=== PATIENT | female | born 1980 | race Caucasian/White ===

== ENCOUNTER 2017-01-05 16:54 | Emergency (ER) | payer MEDICARE, OTHER ==
[2017-01-05 17:02] VITALS: RESP 18; TEMP 99
[2017-01-05] MEDS ORDERED: SODIUM CHLORIDE 0.9% 1,000 ML IV STA (17:25)
[2017-01-05] MEDS ORDERED: LORazepam 2 MG/ML SYRINGE IV STA (17:40)
--- NOTE | 2017-01-05 17:40 | ED ---
General Adult HPI - General Chief complaint: Syncope Stated complaint: syncope Source: patient, EMS, RN notes reviewed, old records reviewed Mode of arrival: EMS Limitations: no limitations - History of Present Illness Initial comments: Chief complaint history of present illness 36-year-old female here with a complaint of having a syncopal episode at home. Patient reports she's had 2 days of discomfort to the left flank area. She does have a history of frequent only passing kidney stones does not have urination since this morning. Patient also reports that she had some anxiety associated with problems at home she developed some shortness of breath chest pain and dark vision and then reportedly passed out. Patient does have a history of bipolar disorder and anxiety and depression. - Related Data Home Medications Medication Instructions Recorded Confirmed Diazepam [Diazepam] 10 mg PO BID PRN 07/01/16 01/05/17 Carisoprodol [Soma] 350 mg PO DIRECTED 01/05/17 01/05/17 HYDROcodone/APAP 7.5-325MG [[place] 1 tab PO QID PRN 01/05/17 01/05/17 7.5-325] Previous Rx's Medication Instructions Recorded Ondansetron Odt [Zofran ODT] 4 mg PO Q8HR PRN #5 tab 01/05/17 Tamsulosin [Flomax] 0.4 mg PO DAILY #14 cap 01/05/17 Allergies Allergy/AdvReac Type Severity Reaction Status Date / Time codeine phosphate Allergy Itching Verified 01/05/17 17:34 [From Tylenol-Codeine #3] egg AdvReac DIGESTIVE Verified 01/05/17 17:34 ISSUES ibuprofen [From Motrin] AdvReac Stomach Verified 01/05/17 17:34 bleed Review of Systems ROS Statement: Those systems with pertinent positive or pertinent negative responses have been documented in the HPI. Review of systems. Patient's denying headache or visual acuity change this time chest pain is low at up. She still anxious and upset. Left flank pain. Nausea no vomiting. Decreased urination slightly. No trouble with bowel movements. No injuries lately. All systems are reviewed. Past medical problems significant for anxiety, bipolar disorder depression. Surgeries hernia , tubal ligation and lithotripsy. Family history includes multiple cancers including lung, cervical, breast and lymphoma. The patient has ALLERGIES to codeine and eggs and ibuprofen because of stomach ulcers. Patient does smoke strongly encouraged to stop. Denies alcohol use. ROS Other: All systems not noted in ROS Statement are negative. Past Medical History Additional Past Medical History / Comment(s): kidney stones, facet syndrome, back pain, sciatica, bipolar History of Any Multi-Drug Resistant Organisms: None Reported Past Surgical History: Hernia Repair, Tubal Ligation Additional Past Surgical History / Comment(s): lithotripsy, hx of kidney stones Past Psychological History: Anxiety, Bipolar, Depression Smoking Status: Current every day smoker Past Alcohol Use History: Occasional Past Drug Use History: Marijuana, Prescription Drug Abuse General Exam - General Exam Comments Initial Comments: General: The patient is awake and alert, complains of feeling anxious. Her syncopal episode approximately 30 minutes ago. States she's under great deal of stress. Vital signs show temperature 99.0 pulse 102 respiratory rate 18 pulse ox on percent room air blood pressure 120/87 Eye: Pupils are equal, round and reactive to light, extra-ocular movements are intact ; there is normal conjunctiva bilaterally. No signs of icterus. Ears, nose, mouth and throat: There are moist mucous membranes and no oral lesions. Neck: The neck is supple, there is no tenderness . Cardiovascular: Tachycardic heart rate, 102. No murmur, rub or gallop is appreciated. No chest pain at this time Respiratory: Lungs are clear to auscultation, respirations are non-labored, breath sounds are equal. No wheezes, stridor, rales, or rhonchi. Gastrointestinal: Feels like a nervous stomach not nauseated but nervous Back: Left flank pain. Musculoskeletal: Normal ROM, no tenderness, There is no pedal edema. There is no calf tenderness or swelling. Sensation intact. Pulses equal bilaterally 2+. Neurological: No neuro deficits cranial nerves II through XII are intact. Skin: Skin is warm and dry and no rashes or lesions are noted. Psychiatric: Cooperative, anxious, crying. History of bipolar disorder and anxiety reaction. Limitations: no limitations Course Vital Signs 01/05/17 01/05/17 01/05/17 16:56 18:12 20:28 Temperature 99.0 F Pulse Rate 102 H 81 97 Respiratory 18 18 18 Rate Blood Pressure 120/87 109/69 137/98 O2 Sat by Pulse 100 98 97 Oximetry 01/05/17 22:11 Temperature Pulse Rate 99 Respiratory 18 Rate Blood Pressure 128/79 O2 Sat by Pulse 98 Oximetry EKG Findings - EKG Comments: EKG Findings:: EKG was done and reviewed at 1757 showing normal sinus rhythm no acute service no ectopy no ischemic changes. Rate 89 UT interval is 120 QRS 84 QT [address] Angelo. This EKG was compared to one done on 07/01/2016 and they're similar. Medical Decision Making - Medical Decision Making Labs show white count 9.8 hemoglobin 14 hematocrit of 40. Potassium 4.2 BUN 11 creatinine 0.6 with a GFR greater than 60. Glucose 90. Patient requesting pain medication for developing left kidney pain. She states she uses Toradol and occasionally a stronger pain medication. She was given Toradol 30 IV and 0.5 of Dilaudid. She reports she has ALLERGIES ibuprofen because it irritates her stomach. But Toradol does not through the IV. Chest x-ray is done and reviewed by radiologist his impression is normal chest no change. As read by Dr. Garcia X-ray of the abdomen was done and reviewed by radiologist his impression is nonacute abdomen. No change. As read by Dr. Garcia Drug triage was positive for opiates, amphetamines, benzodiazepines and marijuana. The patient is refusing a CAT scan states she can go home and comfortably or pass a stone on her own she's done in the past. Urine showed 3 reds 3 whites but no signs of infection. The patient will be placed on Flomax ibuprofen and Zofran. Told to follow-up with family physician. Change positions slowly. - Lab Data Result diagrams: 01/05/17 18:10 01/05/17 18:10 Lab Results 01/05/17 01/05/17 01/05/17 Range/Units 18:10 18:10 18:10 WBC 9.8 (3.8-10.6) k/uL RBC 4.39 (3.80-5.40) m/uL Hgb 14.0 (11.4-16.0) gm/dL Hct 40.4 (34.0-46.0) % MCV 92.1 (80.0-100.0) fL MCH 31.8 (25.0-35.0) pg MCHC 34.5 (31.0-37.0) g/dL RDW 12.6 (11.5-15.5) % Plt Count 285 (150-450) k/uL Neutrophils % 70 % Lymphocytes % 23 % Monocytes % 3 % Eosinophils % 2 % Basophils % 1 % Neutrophils # 6.9 (1.3-7.7) k/uL Lymphocytes # 2.2 (1.0-4.8) k/uL Monocytes # 0.3 (0-1.0) k/uL Eosinophils # 0.2 (0-0.7) k/uL Basophils # 0.1 (0-0.2) k/uL Sodium 137 (137-145) mmol/L Potassium 4.2 (3.5-5.1) mmol/L Chloride 104 (98-107) mmol/L Carbon Dioxide 26 (22-30) mmol/L Anion Gap 7 mmol/L BUN 11 (7-17) mg/dL Creatinine 0.63 (0.52-1.04) mg/dL Est GFR (MDRD) Af Amer >60 (>60 ml/min/1.73 sqM) Est GFR (MDRD) Non-Af >60 (>60 ml/min/1.73 sqM) Glucose 90 (74-99) mg/dL Calcium 9.1 (8.4-10.2) mg/dL Total Bilirubin 0.3 (0.2-1.3) mg/dL AST 12 L (14-36) U/L ALT 25 (9-52) U/L Alkaline Phosphatase 55 (38-126) U/L Total Creatine Kinase 66 (30-135) U/L CK-MB (CK-2) 0.2 (0.0-2.4) ng/mL CK-MB (CK-2) Rel Index 0.3 Troponin I <0.012 (0.000-0.034) ng/mL Total Protein 5.7 L (6.3-8.2) g/dL Albumin 3.6 (3.5-5.0) g/dL Urine Color Urine Appearance (Clear) Urine pH (5.0-8.0) Ur Specific [place] (1.001-1.035) Urine Protein (Negative) Urine Glucose (UA) (Negative) Urine Ketones (Negative) Urine Blood (Negative) Urine Nitrate (Negative) Urine Bilirubin (Negative) Urine Urobilinogen (<2.0) mg/dL Ur Leukocyte Esterase (Negative) Urine RBC (0-5) /hpf Ur Squamous Epith Cells (0-4) /hpf Urine Mucus (None) /hpf Urine Opiates Screen (NotDetected) Ur Oxycodone Screen (NotDetected) Urine Methadone Screen (NotDetected) Ur Propoxyphene Screen (NotDetected) Ur Barbiturates Screen (NotDetected) U Tricyclic Antidepress (NotDetected) Ur Phencyclidine Scrn (NotDetected) Ur Amphetamines Screen (NotDetected) U Methamphetamines Scrn (NotDetected) U Benzodiazepines Scrn (NotDetected) Urine Cocaine Screen (NotDetected) U Marijuana (THC) Screen (NotDetected) 01/05/17 Range/Units 20:23 WBC (3.8-10.6) k/uL RBC (3.80-5.40) m/uL Hgb (11.4-16.0) gm/dL Hct (34.0-46.0) % MCV (80.0-100.0) fL MCH (25.0-35.0) pg MCHC (31.0-37.0) g/dL RDW (11.5-15.5) % Plt Count (150-450) k/uL Neutrophils % % Lymphocytes % % Monocytes % % Eosinophils % % Basophils % % Neutrophils # (1.3-7.7) k/uL Lymphocytes # (1.0-4.8) k/uL Monocytes # (0-1.0) k/uL Eosinophils # (0-0.7) k/uL Basophils # (0-0.2) k/uL Sodium (137-145) mmol/L Potassium (3.5-5.1) mmol/L Chloride (98-107) mmol/L Carbon Dioxide (22-30) mmol/L Anion Gap mmol/L BUN (7-17) mg/dL Creatinine (0.52-1.04) mg/dL Est GFR (MDRD) Af Amer (>60 ml/min/1.73 sqM) Est GFR (MDRD) Non-Af (>60 ml/min/1.73 sqM) Glucose (74-99) mg/dL Calcium (8.4-10.2) mg/dL Total Bilirubin (0.2-1.3) mg/dL AST (14-36) U/L ALT (9-52) U/L Alkaline Phosphatase (38-126) U/L Total Creatine Kinase (30-135) U/L CK-MB (CK-2) (0.0-2.4) ng/mL CK-MB (CK-2) Rel Index Troponin I (0.000-0.034) ng/mL Total Protein (6.3-8.2) g/dL Albumin (3.5-5.0) g/dL Urine Color Yellow Urine Appearance Clear (Clear) Urine pH 6.0 (5.0-8.0) Ur Specific [place] 1.019 (1.001-1.035) Urine Protein Negative (Negative) Urine Glucose (UA) Negative (Negative) Urine Ketones Negative (Negative) Urine Blood Negative (Negative) Urine Nitrate Negative (Negative) Urine Bilirubin Negative (Negative) Urine Urobilinogen <2.0 (<2.0) mg/dL Ur Leukocyte Esterase Moderate H (Negative) Urine RBC 3 (0-5) /hpf Ur Squamous Epith Cells 3 (0-4) /hpf Urine Mucus Rare H (None) /hpf Urine Opiates Screen Detected H (NotDetected) Ur Oxycodone Screen Not Detected (NotDetected) Urine Methadone Screen Not Detected (NotDetected) Ur Propoxyphene Screen Not Detected (NotDetected) Ur Barbiturates Screen Not Detected (NotDetected) U Tricyclic Antidepress Not Detected (NotDetected) Ur Phencyclidine Scrn Not Detected (NotDetected) Ur Amphetamines Screen Detected H (NotDetected) U Methamphetamines Scrn Not Detected (NotDetected) U Benzodiazepines Scrn Detected H (NotDetected) Urine Cocaine Screen Not Detected (NotDetected) U Marijuana (THC) Screen Detected H (NotDetected) Disposition Clinical Impression: Syncope, Renal colic on left side Disposition: HOME SELF-CARE Condition: Fair Instructions: Syncope (ED), Renal Colic (ED) Additional Instructions: Increase her fluids. Change positions slowly. No driving for 6 months which is a state law. Follow-up with your family physician to get driving privileges back again. Prescriptions: Ondansetron Odt [Zofran ODT] 4 mg PO Q8HR PRN #5 tab PRN Reason: Nausea Tamsulosin [Flomax] 0.4 mg PO DAILY #14 cap
[2017-01-05 18:27] LABS: Basophils # (A) 0.1 k/uL (0-0.2); Basophils % (A) 1 %; CH 31.8; CHCM 34.7; Eosinophils # (A) 0.2 k/uL (0-0.7); Eosinophils % (A) 2 %; HCT 40.4 % (34.0-46.0); HDW 2.37; Luc % (Auto) 1; Lymphocytes # (A) 2.2 k/uL (1.0-4.8); Lymphocytes % (A) 23 %; MCH 31.8 pg (25.0-35.0); MCHC 34.5 g/dL (31.0-37.0); MCV 92.1 fL (80.0-100.0); Mean Platelet Volume 7.4; Monocytes # (A) 0.3 k/uL (0-1.0); Monocytes % (A) 3 %; Neutrophils # (A) 6.9 k/uL (1.3-7.7); Neutrophils % (A) 70 %; RBC 4.39 m/uL (3.80-5.40); RDW 12.6 % (11.5-15.5); WBC 9.8 k/uL (3.8-10.6); WBC (Perox) 9.64
[2017-01-05 18:29] LABS: ALT 25 U/L (9-52); AST 12 U/L (14-36); Alkaline Phosphatase 55 U/L (38-126); Anion Gap 7 mmol/L; Blood Urea Nitrogen 11 mg/dL (7-17); Calcium 9.1 mg/dL (8.4-10.2); Carbon Dioxide 26 mmol/L (22-30); Chloride 104 mmol/L (98-107); Glucose 90 mg/dL (74-99); Non-African American GFR(MDRD) >60 (>60 ml/min/1.73 sqM); Potassium 4.2 mmol/L (3.5-5.1); Sodium 137 mmol/L (137-145); Total Bilirubin 0.3 mg/dL (0.2-1.3); Total Protein 5.7 g/dL (6.3-8.2)
[2017-01-05 18:40] LABS: Creatine Kinase 66 U/L (30-135)
[2017-01-05] MEDS ORDERED: KETOROLAC 30 MG/ML 1 ML VIAL IVP STA (18:48)
[2017-01-05] MEDS ORDERED: HYDROmorphone 1 MG/ML 1 ML SYRINGE IVP STA (18:48)
--- NOTE | 2017-01-05 18:52 | XR ---
EXAMINATION TYPE: XR chest 2V DATE OF EXAM: 01/05/2017 6:33 PM COMPARISON: 07/02/2016 HISTORY: Dizziness TECHNIQUE: Frontal and lateral views of the chest are obtained. FINDINGS: Heart and mediastinum are normal. Lungs are clear. Diaphragm is normal. There are chest le ads. Bony thorax is intact. IMPRESSION: Normal chest. No change.
--- NOTE | 2017-01-05 18:53 | XR ---
EXAMINATION TYPE: XR abdomen 2V DATE OF EXAM: 01/05/2017 6:33 PM COMPARISON: 04/10/2016 HISTORY: Dizziness and left flank pain TECHNIQUE: 3 views FINDINGS: Bowel gas pattern is normal. There is no sign of intestinal obstruction or pneumoperitoneum . There are clips from tubal ligation. Fecal pattern is normal. Lung bases are clear. There are no pa thologic calcifications over the kidneys. IMPRESSION: Nonacute abdomen. No change.
[2017-01-05 18:54] LABS: Creatine Kinase MB 0.2 ng/mL (0.0-2.4); Troponin I <0.012 ng/mL (0.000-0.034)
[2017-01-05 20:40] LABS: Appearance,Urine Clear (Clear); Bilirubin,Urine Negative (Negative); Glucose,Urine (UA) Negative (Negative); Ketones,Urine Negative (Negative); Leukocyte Esterase,Urine Moderate (Negative); Mucus,Urine Rare /hpf; Nitrite,Urine Negative (Negative); Particle Count 2444; Protein,Urine Negative (Negative); RBC,Urine 3 /hpf (0-5); Specific Gravity,Urine 1.019 (1.001-1.035); Squamous Epithelial Cell,Urine 3 /hpf (0-4); UA Billing (MACRO vs. MICRO) MICRO; Urobilinogen,Urine <2.0 mg/dL (<2.0)
[2017-01-05] MEDS ORDERED: METOCLOPRAMIDE 5 MG/ML 2 ML VIAL IVP STA (21:47)
[2017-01-05 22:15] VITALS: BP 128/79; PULSE 99
== END 2017-01-05 22:20 | disposition home or self-care (01) ==
LOC: EC 16:54
DX: R55 Syncope and collapse (principal); N23 Unspecified renal colic; R07.9 Chest pain, unspecified; R06.02 Shortness of breath; F31.9 Bipolar disorder, unspecified; F41.9 Anxiety disorder, unspecified; Z79.899 Other long term (current) drug therapy; Z91.012 Allergy to eggs; Z88.5 Allergy status to narcotic agent; Z88.6 Allergy status to analgesic agent; Z87.442 Personal history of urinary calculi; Z98.890 Other specified postprocedural states
CPT/HCPCS: 36415; 93005; 80053; 82550; 82553; 84484; 85025; 81001; 80306; 71020; 74020; 99285; 96374; 96375 ×3; J2060; J2765; J1885; J1170

== ENCOUNTER 2017-04-16 19:36 | Emergency (ER) | payer MEDICARE, OTHER ==
[2017-04-16] MEDS ORDERED: HYDROmorphone 1 MG/ML 1 ML SYRINGE IVP STA (21:16)
[2017-04-16] MEDS ORDERED: SODIUM CHLORIDE 0.9% 1,000 ML IV STA (21:16)
--- NOTE | 2017-04-16 21:27 | ED ---
General Adult HPI - General Chief complaint: Neuro Symptoms/Deficit Stated complaint: Body Numbness. Post injections Time Seen by Provider: 04/16/17 20:40 Source: patient, RN notes reviewed, old records reviewed Mode of arrival: wheelchair Limitations: no limitations - History of Present Illness Initial comments: Chief complaint history of present illness is a 37-year-old female here with a complaint of pain radiating down her legs and tingling sensation. Patient reports that she was treated at her chronic pain doctors office where she had radiofrequency injections. She states he's had this done one per year for the last 5 years and she usually feels very good afterwards. Today she states she has tingling pain that goes down mainly her right leg. She did also complain that it seen in the affected the arms as well. The area where the radiofrequency was done is right paralumbar. Patient states she has pain when walking needs help to walk. Has not had a bowel movement but does not feel as though she needs to. States she feels that she has to push the urine out. - Related Data Home Medications Medication Instructions Recorded Confirmed Diazepam [Diazepam] 10 mg PO DAILY PRN 07/01/16 04/16/17 HYDROcodone/APAP 7.5-325MG [[place] 1 tab PO QID PRN 01/05/17 04/16/17 7.5-325] Diclofenac Sodium [Voltaren] 75 mg PO DAILY 04/16/17 04/16/17 Methocarbamol [Robaxin-750] 750 mg PO TID PRN 04/16/17 04/16/17 Allergies Allergy/AdvReac Type Severity Reaction Status Date / Time codeine phosphate Allergy Itching Verified 04/16/17 20:19 [From Tylenol-Codeine #3] egg AdvReac DIGESTIVE Verified 04/16/17 20:19 ISSUES ibuprofen [From Motrin] AdvReac Stomach Verified 04/16/17 20:19 bleed Review of Systems ROS Statement: Those systems with pertinent positive or pertinent negative responses have been documented in the HPI. review of systems no headache or chest pain. She says she has occasional discomfort to her arms which comes and goes. No chest pain shortness of breath . Her main complaint is a persistent tingling sensation down her lower extremities more on the right than the left. Patient is asking for pain medication. She had available to her at home Valium Robaxin and hydrocodone. All systems are reviewed.Past medical problems significant for frequent kidney stones, facet syndrome, chronic back pain sciatica bipolar disorder. Surgeries hernia repair, tubal ligation. She's had lithotripsy for her stones. Patient reports smoker. Occasional alcohol use. Pulses marijuana prescription drug abuse which she says when she was much younger.patient was seen emergency room for syncopal episode this past December which she states was caused by stress. She states her stressful situation is over now. ROS Other: All systems not noted in ROS Statement are negative. Past Medical History Additional Past Medical History / Comment(s): kidney stones, facet syndrome, back pain, sciatica, bipolar History of Any Multi-Drug Resistant Organisms: None Reported Past Surgical History: Hernia Repair, Tubal Ligation Additional Past Surgical History / Comment(s): lithotripsy, hx of kidney stones Past Psychological History: Anxiety, Bipolar, Depression Smoking Status: Current every day smoker Past Alcohol Use History: Occasional Past Drug Use History: Marijuana, Prescription Drug Abuse General Exam - General Exam Comments Initial Comments: General: The patient is awake and alert, complaining of pain and tingling to her lower extremities. Does not feel tired. His no difficulty speaking or breathing. Vital signs show temperature 98.2 pulse 91 her story rate 18 pulse ox 99% room air blood pressure 101/65 Eye: Pupils are equal, extra-ocular movements are intact; there is normal conjunctiva bilaterally. Neck: The neck is supple, there is no tenderness. Cardiovascular: There is a regular rate and rhythm. No murmur, rub or gallop is appreciated. Respiratory: Lungs are clear to auscultation, respirations are non-labored, breath sounds are equal. No wheezes, stridor, rales, or rhonchi. Gastrointestinal: no abdominal pain. No nausea no vomiting. States she has not felt like she's had to have a bowel movement. Rectal examination shows good rectal tone done with the assistance of saige Torres. Back: chronic back pain. Patient states she had radiofrequency manipulation performed by her pain management doctor in the right paralumbar region yesterday. Today describes her symptoms as back pain plus tingling and difficulty walking because of pain and tingling Musculoskeletal: Normal ROM, no tenderness, There is no pedal edema. There is no calf tenderness or swelling. complains of pain radiating down the legs and a funny electrical tingling sensation Neurological: complains of tingling sensation in her legs and arms. But able to move her arms and legs but with complaint of pain with movement of the legs. able to flex and extend legs and arms but with complaint of pain and tingling. Able to wiggle toes bend ankles vascular status to the feet intact. Skin: Skin is warm and dry and no rashes or lesions are noted. Psychiatric: past history of bipolar disorder. states her living situation has improved. Limitations: no limitations Course Vital Signs 04/16/17 04/16/17 20:01 21:53 Temperature 98.2 F 97.6 F Pulse Rate 91 84 Respiratory 18 20 Rate Blood Pressure 101/65 109/63 O2 Sat by Pulse 99 100 Oximetry Medical Decision Making - Medical Decision Making Medical decision making patient's white count is 9.7 hemoglobin 13 hematocrit 38. Urinalysis leuk esterase positive with 7 white cells 2 red cells. The drug screen was positive for opiates benzos and marijuana. The patient had a CT of the lumbar spine with IV contrast for evaluation after having had adverse reactions in the general area with tingling sensation to her lower extremities after having had radiofrequency manipulation of her spine yesterday. States it's hard to walk. CT lumbosacral spine was done with and without contrast. This was compared to a previous CAT scan of the abdomen and pelvis. The radiologist's findings include vertebrae unremarkable. No acute fracture. Discs spinal canal and neural foramina no acute findings. No spinal canal stenosis. Soft tissues cystic lesion to the inferior spleen is stable and interval. Impression normal appearance of the lumbar spine. As read by Dr. Justice (stat rad) patient had been given an injection of Dilaudid with partial relief of pain. the patient's plan is to follow-up with her pain management doctor tomorrow. She'll be given a shot of Dilaudid hold her over until then. - Lab Data Result diagrams: 04/16/17 21:49 Lab Results 04/16/17 04/16/17 Range/Units 21:49 21:49 WBC 9.7 (3.8-10.6) k/uL RBC 4.10 (3.80-5.40) m/uL Hgb 13.2 (11.4-16.0) gm/dL Hct 38.8 (34.0-46.0) % MCV 94.4 (80.0-100.0) fL MCH 32.1 (25.0-35.0) pg MCHC 34.0 (31.0-37.0) g/dL RDW 14.2 (11.5-15.5) % Plt Count 302 (150-450) k/uL Neutrophils % 54 % Lymphocytes % 38 % Monocytes % 4 % Eosinophils % 2 % Basophils % 1 % Neutrophils # 5.3 (1.3-7.7) k/uL Lymphocytes # 3.7 (1.0-4.8) k/uL Monocytes # 0.4 (0-1.0) k/uL Eosinophils # 0.2 (0-0.7) k/uL Basophils # 0.1 (0-0.2) k/uL Urine Color Light Yellow Urine Appearance Clear (Clear) Urine pH 6.0 (5.0-8.0) Ur Specific [place] 1.006 (1.001-1.035) Urine Protein Negative (Negative) Urine Glucose (UA) Negative (Negative) Urine Ketones Negative (Negative) Urine Blood Negative (Negative) Urine Nitrite Negative (Negative) Urine Bilirubin Negative (Negative) Urine Urobilinogen <2.0 (<2.0) mg/dL Ur Leukocyte Esterase Moderate H (Negative) Urine RBC 2 (0-5) /hpf Urine WBC 7 H (0-5) /hpf Ur Squamous Epith Cells 3 (0-4) /hpf Urine Bacteria Rare H (None) /hpf Urine Opiates Screen Detected H (NotDetected) Ur Oxycodone Screen Not Detected (NotDetected) Urine Methadone Screen Not Detected (NotDetected) Ur Propoxyphene Screen Not Detected (NotDetected) Ur Barbiturates Screen Not Detected (NotDetected) U Tricyclic Antidepress Not Detected (NotDetected) Ur Phencyclidine Scrn Not Detected (NotDetected) Ur Amphetamines Screen Not Detected (NotDetected) U Methamphetamines Scrn Not Detected (NotDetected) U Benzodiazepines Scrn Detected H (NotDetected) Urine Cocaine Screen Not Detected (NotDetected) U Marijuana (THC) Screen Detected H (NotDetected) Disposition Clinical Impression: Lumbar radiculopathy, acute Disposition: HOME SELF-CARE Condition: Fair Instructions: Lumbar Radiculopathy (ED) Additional Instructions: Continue with home medications. Follow-up with your pain management doctor tomorrow Referrals: Vamshi Cooper MD [Primary Care Provider] - 1-2 days Time of Disposition: 00:14
[2017-04-16 22:03] LABS: Basophils # (A) 0.1 k/uL (0-0.2); Basophils % (A) 1 %; CH 32.2; CHCM 34.2; Eosinophils # (A) 0.2 k/uL (0-0.7); Eosinophils % (A) 2 %; HCT 38.8 % (34.0-46.0); HDW 2.31; HGB 13.2 gm/dL (11.4-16.0); Luc % (Auto) 1; Lymphocytes # (A) 3.7 k/uL (1.0-4.8); Lymphocytes % (A) 38 %; MCH 32.1 pg (25.0-35.0); MCV 94.4 fL (80.0-100.0); Mean Platelet Volume 7.1; Monocytes # (A) 0.4 k/uL (0-1.0); Monocytes % (A) 4 %; Neutrophils # (A) 5.3 k/uL (1.3-7.7); Neutrophils % (A) 54 %; RDW 14.2 % (11.5-15.5); WBC 9.7 k/uL (3.8-10.6); WBC (Perox) 9.84
[2017-04-16 22:21] LABS: Appearance,Urine Clear (Clear); Bacteria,Urine Rare /hpf; Bilirubin,Urine Negative (Negative); Glucose,Urine (UA) Negative (Negative); Ketones,Urine Negative (Negative); Leukocyte Esterase,Urine Moderate (Negative); Nitrite,Urine Negative (Negative); Particle Count 3985; Protein,Urine Negative (Negative); RBC,Urine 2 /hpf (0-5); Specific Gravity,Urine 1.006 (1.001-1.035); Squamous Epithelial Cell,Urine 3 /hpf (0-4); UA Billing (MACRO vs. MICRO) MICRO; Urobilinogen,Urine <2.0 mg/dL (<2.0); WBC,Urine 7 /hpf (0-5)
[2017-04-16] MEDS ORDERED: RX INFO: IV CONTRAST WAS GIVEN 1 EACH MISC MISCELLANE PRN (22:39)
--- NOTE | 2017-04-17 00:03 | CT ---
EXAM: CT Lumbar Spine Without and With Intravenous Contrast CLINICAL HISTORY: Reason: Pain TECHNIQUE: Axial computed tomography images of the lumbar spine without and with intravenous contrast. CTDI is 63 mGy and DLP is 1570 mGy-cm. This CT exam was performed using one or more of the following dose reduction techniques: automated exposure control, adjustment of the mA and/or kV according to patient size, and/or use of iterative reconstruction technique. COMPARISON: CT abdomen and pelvis of 05/04/16 FINDINGS: Vertebrae: Unremarkable. No acute fracture. Discs/spinal canal/neural foramina: No acute findings. No spinal canal stenosis. Soft tissues: Cystic lesion to the inferior spleen is stable in the interval. IMPRESSION: Normal appearance of the lumbar spine
[2017-04-17] MEDS ORDERED: HYDROmorphone 1 MG/ML 1 ML SYRINGE IVP STA (00:12)
[2017-04-17 00:42] VITALS: BP 102/59; PULSE 85; RESP 18; TEMP 98
== END 2017-04-17 00:41 | disposition home or self-care (01) ==
LOC: EC 19:36
DX: M54.16 Radiculopathy, lumbar region (principal); F17.200 Nicotine dependence, unspecified, uncomplicated; Z88.5 Allergy status to narcotic agent; Z88.6 Allergy status to analgesic agent; Z91.012 Allergy to eggs; Z79.899 Other long term (current) drug therapy
CPT/HCPCS: 99284; 96374; 96376; 96361 ×3; 36415; 85025; 81001; 80306; 72133; J1170 ×2; Q9967

== ENCOUNTER 2018-03-20 18:46 | Inpatient (IN) | payer MEDICARE, MEDICAID ==
--- NOTE | 2018-03-20 19:28 | ED ---
General Adult HPI - General Source: patient, RN notes reviewed Mode of arrival: ambulatory Limitations: no limitations <Ulises Bennett - Last Filed: 03/20/18 19:26> <Monserrat Foley - Last Filed: 03/20/18 20:15> - General Chief complaint: Psychiatric Symptoms Stated complaint: Mental Health Eval Time Seen by Provider: 03/20/18 19:06 - History of Present Illness Initial comments: Patient 38-year-old female who presents emergency room today with chief complaint of thoughts of hurting herself. She states that she has cut to the left forearm and right forearm. She states that his last night. Greater than 12 hours. Patient states her tetanus is up-to-date. She denies any homicidal thoughts or plans. She does admit to thoughts of suicide as well. Patient denies any other complaints or symptoms. Patient denies any recent fever, chills , shortness of breath, chest pain, back pain, abdominal pain, nausea or vomiting , numbness or tingling, headaches or visual changes, or any other complaints. ( Ulises Bennett) - Related Data Home Medications Medication Instructions Recorded Confirmed Diazepam [Diazepam] 10 mg PO DAILY PRN 07/01/16 04/16/17 HYDROcodone/APAP 7.5-325MG [[place] 1 tab PO QID PRN 01/05/17 04/16/17 7.5-325] Diclofenac Sodium [Voltaren] 75 mg PO DAILY 04/16/17 04/16/17 Methocarbamol [Robaxin-750] 750 mg PO TID PRN 04/16/17 04/16/17 Allergies Allergy/AdvReac Type Severity Reaction Status Date / Time codeine phosphate Allergy Itching Verified 03/20/18 18:57 [From Tylenol-Codeine #3] egg AdvReac DIGESTIVE Verified 03/20/18 18:57 ISSUES ibuprofen [From Motrin] AdvReac Stomach Verified 03/20/18 18:57 bleed Review of Systems ROS Other: All systems not noted in ROS Statement are negative. <Ulises Bennett - Last Filed: 03/20/18 19:26> ROS Other: All systems not noted in ROS Statement are negative. <Monserrat Foley - Last Filed: 03/20/18 20:15> ROS Statement: Those systems with pertinent positive or pertinent negative responses have been documented in the HPI. Past Medical History Additional Past Medical History / Comment(s): kidney stones, facet syndrome, back pain, sciatica, bipolar History of Any Multi-Drug Resistant Organisms: None Reported Past Surgical History: Hernia Repair, Tubal Ligation Additional Past Surgical History / Comment(s): lithotripsy, hx of kidney stones Past Psychological History: Anxiety, Bipolar, Depression, Schizoaffective Disorder Smoking Status: Current every day smoker Past Alcohol Use History: Occasional Past Drug Use History: Marijuana, Prescription Drug Abuse <Ulises Bennett - Last Filed: 03/20/18 19:26> General Exam Limitations: no limitations <Ulises Bennett - Last Filed: 03/20/18 19:26> <Monserrat Foley - Last Filed: 03/20/18 20:15> - General Exam Comments Initial Comments: General: The patient is awake and alert, in no distress, and does not appear acutely ill. Eye: Pupils are equal, round and reactive to light, extra-ocular movements are intact. No nystagmus. There is normal conjunctiva bilaterally. No signs of icterus. Ears, nose, mouth and throat: There are moist mucous membranes and no oral lesions. Neck: The neck is supple, there is no tenderness or JVD. Cardiovascular: There is a regular rate and rhythm. No murmur, rub or gallop is appreciated. Respiratory: Lungs are clear to auscultation, respirations are non-labored, breath sounds are equal. No wheezes, stridor, rales, or rhonchi. Musculoskeletal: Normal ROM, no tenderness. Strength 5/5. Sensation intact. Pulses equal bilaterally 2+. Neurological: A&O x 3. CN II-XII intact, There are no obvious motor or sensory deficits. Coordination appears grossly intact. Speech is normal. Skin: Patient does have superficial cuts to the left forearm. Patient does have a superficial cuts to the right posterior forearm with no active bleeding Psychiatric: Cooperative. (Ulises Bennett) Course <Ulises Bennett - Last Filed: 03/20/18 19:26> <Monserrat Foley - Last Filed: 03/20/18 20:15> Vital Signs 03/20/18 18:53 Temperature 98.3 F Pulse Rate 100 Respiratory 16 Rate Blood Pressure 116/69 O2 Sat by Pulse 96 Oximetry - Reevaluation(s) Reevaluation #1: 03/20/18 19:27 Patient does have superficial cuts to both left and right forearm. Left side is nonsuturable no new for any treatment here. Patient's lacerations and superficial cuts to the right posterior forearm are slightly deeper but have been (greater than 12 hours. Patient currently being seen by psych services at this time. (Ulises Bennett) Medical Decision Making <Ulises Bennett - Last Filed: 03/20/18 19:26> <Monserrat Foley - Last Filed: 03/20/18 20:15> - Medical Decision Making 38-year-old female patient presented to the emergency department today with suicidal ideation. Patient was evaluated by emergency psych services, it is felt that she would benefit from inpatient admission at this time. She'll be transferred to the mental health unit. (Monserrat Foley) - Lab Data Lab Results 03/20/18 Range/Units 19:05 Urine Opiates Screen Detected H (NotDetected) Ur Oxycodone Screen Not Detected (NotDetected) Urine Methadone Screen Not Detected (NotDetected) Ur Propoxyphene Screen Not Detected (NotDetected) Ur Barbiturates Screen Not Detected (NotDetected) U Tricyclic Antidepress Not Detected (NotDetected) Ur Phencyclidine Scrn Not Detected (NotDetected) Ur Amphetamines Screen Not Detected (NotDetected) U Methamphetamines Scrn Not Detected (NotDetected) U Benzodiazepines Scrn Detected H (NotDetected) Urine Cocaine Screen Not Detected (NotDetected) U Marijuana (THC) Screen Detected H (NotDetected) Disposition <Ulises Bennett - Last Filed: 03/20/18 19:26> - Out of Hospital Transfer - Req. Specs Out of Hospital Transfer - Requested Specifics: Psychiatric Non-ICU ([facility]) <Monserrat Foley - Last Filed: 03/20/18 20:15> Clinical Impression: Depression, Suicidal ideation Disposition: TRANSFER TO PSYCH HOSP/UNIT Referrals: Vamshi Cooper MD [Primary Care Provider] - 1-2 days
[2018-03-20 19:33] LABS: Amphetamine Screen,Urine Not Detected (NotDetected); Barbiturate Screen,Urine Not Detected (NotDetected); Benzodiazepines Screen,Urine Detected (NotDetected); Cocaine Screen,Urine Not Detected (NotDetected); Methadone Screen, Urine Not Detected (NotDetected); Opiate Screen,Urine Detected (NotDetected); Oxycodone Screen, Urine Not Detected (NotDetected); Phencyclidine Screen,Urine Not Detected (NotDetected); Tricyclic Antidepressant,Urine Not Detected (NotDetected); Urn Cannabinoid Scrn Detected (NotDetected)
[2018-03-20] MEDS ORDERED: LORazepam 1 MG TAB PO STA (19:41)
[2018-03-20] MEDS ORDERED: MAGNESIUM HYDROXIDE 2,400 MG/10 ML CUP PO PRN (20:28)
[2018-03-20] MEDS ORDERED: ZIPRASIDONE 20 MG VIAL IM PRN (20:28)
[2018-03-20] MEDS ORDERED: MAG HYDROX/AL HYDROX/SIMETH 30 ML CUP PO PRN (20:28)
[2018-03-20] MEDS ORDERED: LORazepam 2 MG/ML INJ IM PRN (20:30)
[2018-03-20] MEDS ORDERED: LOPERAMIDE 2 MG CAP PO PRN (20:36)
[2018-03-20] MEDS ORDERED: ONDANSETRON 4 MG TAB PO PRN (20:37)
[2018-03-20 20:44] LABS: Appearance,Urine Clear (Clear); Bilirubin,Urine Negative (Negative); Blood,Urine Small (Negative); Color,Urine Yellow; Glucose,Urine (UA) Negative (Negative); Ketones,Urine Negative (Negative); Leukocyte Esterase,Urine Negative (Negative); Mucus,Urine Rare /hpf; Nitrite,Urine Negative (Negative); PH, Urine 5.5 (5.0-8.0); Protein,Urine Trace (Negative); RBC,Urine 1 /hpf (0-5); Specific Gravity,Urine 1.029 (1.001-1.035); Squamous Epithelial Cell,Urine 4 /hpf (0-4); WBC,Urine 2 /hpf (0-5)
[2018-03-20 21:35] VITALS: BMI 23.2
[2018-03-21] MEDS: LORazepam 1 MG TAB PO PRN ×2 (02:11→10:27)
[2018-03-21] MEDS: ETODOLAC 400 MG TAB PO SCH (08:54)
[2018-03-21] MEDS: NICOTINE 14MG/24HR PATCH TRANSDERM SCH (08:56)
[2018-03-21 09:30] LABS: Basophils % (A) 1 %; Eosinophils # (A) 0.3 k/uL (0-0.7); Eosinophils % (A) 4 %; HCT 38.1 % (34.0-46.0); Lymphocytes # (A) 3.1 k/uL (1.0-4.8); Lymphocytes % (A) 39 %; MCH 29.7 pg (25.0-35.0); MCHC 34.1 g/dL (31.0-37.0); MCV 87.4 fL (80.0-100.0); Mean Platelet Volume 7.1; Monocytes # (A) 0.4 k/uL (0-1.0); Monocytes % (A) 5 %; Neutrophils % (A) 51 %; Platelet Count 269 k/uL (150-450); RBC 4.36 m/uL (3.80-5.40); RDW 12.6 % (11.5-15.5)
[2018-03-21 09:43] LABS: ALT 10 U/L (9-52); AST 21 U/L (14-36); Albumin 3.3 g/dL (3.5-5.0); Alkaline Phosphatase 66 U/L (38-126); Anion Gap 8 mmol/L; Blood Urea Nitrogen 9 mg/dL (7-17); Calcium 9.1 mg/dL (8.4-10.2); Carbon Dioxide 29 mmol/L (22-30); Chloride 104 mmol/L (98-107); Glucose 88 mg/dL (74-99); Potassium 4.2 mmol/L (3.5-5.1); Sodium 141 mmol/L (137-145); Total Bilirubin 0.1 mg/dL (0.2-1.3); Total Protein 5.3 g/dL (6.3-8.2)
[2018-03-21] MEDS: LORazepam 1 MG TAB PO SCH ×3 (12:25→21:08)
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
[2018-03-21] MEDS: busPIRone HCl 5 MG TAB PO SCH ×2 (15:50→21:08)
[2018-03-21] MEDS: BACITRACIN 500 UNIT/GM OINT 28.4 GM TUBE TOPICAL SCH (16:46)
[2018-03-21] MEDS: LURASIDONE 40 MG TAB PO SCH (18:17)
--- NOTE | 2018-03-21 21:10 | P.MDCNMH ---
History of Present Illness H&P Date: 03/21/18 Chief Complaint: Depression with suicide attempt Patient is a 38-year-old female with a known history of facet syndrome, chronic back pain,/sciatica and bipolar disorder was admitted to the hospital with chief complaints of thoughts of hurting herself. Currently patient did cut skin on the bilateral forearms. Otherwise denied any other homicidal ideation. She does admit to thoughts of suicide. Patient denies any other complaints or symptoms. Patient denies any recent fever, chills, shortness of breath, chest pain, back pain, abdominal pain, nausea or vomiting, numbness or tingling, headaches or visual changes, or any other complaints. No fever no chills. No recent illnesses. Patient does have chronic back pain from previous injury. Review of Systems Constitutional: Patient denies any fever or chills . No generalized weakness or weight loss. Abdomen: Patient denied nausea vomiting and diarrhea and abdominal pain. Cardiovascular: Patient denies any chest pain or short of breath no palpitations. Respiratory: patient denied any cough is from production. No shortness of breath Neurologic: Patient denied any numbness or tingling headache. Musculoskeletal: Patient denies any complaints of joint swelling or deformity. Skin: Negative Psychiatric: Negative Endocrine: No heat or cold intolerance. No recent weight gain. Genitourinary: No dysuria or hematuria. All other 14 point ROS negative except the above Past Medical History Additional Past Medical History / Comment(s): kidney stones, facet syndrome, back pain, sciatica, bipolar History of Any Multi-Drug Resistant Organisms: None Reported Past Surgical History: Hernia Repair, Tubal Ligation Additional Past Surgical History / Comment(s): lithotripsy, hx of kidney stones Smoking Status: Current every day smoker Medications and Allergies Home Medications Medication Instructions Recorded Confirmed Type Diazepam [Diazepam] 10 mg PO DAILY PRN 07/01/16 03/20/18 History Diclofenac Sodium [Voltaren] 75 mg PO DAILY 04/16/17 03/20/18 History Methocarbamol [Robaxin-750] 750 mg PO TID PRN 04/16/17 03/20/18 History Allergies Allergy/AdvReac Type Severity Reaction Status Date / Time codeine phosphate Allergy Itching Verified 03/20/18 18:57 [From Tylenol-Codeine #3] egg AdvReac DIGESTIVE Verified 03/20/18 18:57 ISSUES ibuprofen [From Motrin] AdvReac Stomach Verified 03/20/18 18:57 bleed Physical Exam Vitals: Vital Signs Temp Pulse Pulse Resp BP BP Pulse Ox 03/21/18 02:14 98.2 F 77 16 119/73 03/20/18 21:23 98.1 F 86 16 110/72 97 03/20/18 20:19 98.0 F 90 16 99/54 99 03/20/18 18:53 98.3 F 100 16 116/69 96 Intake and Output 03/21/18 03/21/18 03/21/18 06:59 14:59 22:59 Other: Weight 77.6 kg PHYSICAL EXAMINATION: Patient is lying in the bed comfortably, no acute distress, awake alert and oriented.. HEENT: Normocephalic. Neck is supple. Pupils reactive. Nostrils clear. Oral cavity is moist. Ears reveal no drainage. Neck reveals no JVD, carotid bruits, or thyromegaly. CHEST EXAMINATION: Trachea is central. Symmetrical expansion. Lung cote clear to auscultation and percussion. CARDIAC: Normal S1, S2 with no gallops. No murmurs ABDOMEN: Soft. Bowel sounds normal. No organomegaly. No abdominal bruits. Extremities: reveal no edema. No clubbing or cyanosis Neurologically awake, alert, oriented x3 with well-coordinated movements. No focal deficits noted Skin: Patient does have bilateral forearm superficial skin cut wounds. No active bleeding. No signs of infection. Psychiatric: Coperative. Seems depressed. Currently denied any suicidal ideation Musculoskeletal: No joint swelling or deformity. Normal range of motion. Cranial Nerve Examination - Cranial Nerves Cranial Nerve I- Olfactory: Intact Cranial Nerve II- Optic: Intact Cranial Nerve III- Oculomotor: Intact Cranial Nerve IV- Trochlear: Intact Cranial Nerve V- Trigeminal: Intact Cranial Nerve - Abducens: Intact Cranial Nerve VII- Facial: Intact Cranial Nerve VIII- Auditory: Intact Cranial Nerve IX- Glossopharyngeal: Intact Cranial Nerve X- Vagus: Intact Cranial Nerve XI- Accessory: Intact Cranial Nerve XII- Hypoglossal: Intact Results CBC & Chem 7: 03/21/18 08:50 03/21/18 08:50 Labs: Abnormal Lab Results - Last 24 Hours (Table) 03/20/18 03/20/18 03/21/18 Range/Units 19:05 19:05 08:50 Total Bilirubin 0.1 L (0.2-1.3) mg/dL Total Protein 5.3 L (6.3-8.2) g/dL Albumin 3.3 L (3.5-5.0) g/dL Urine Protein Trace H (Negative) Urine Blood Small H (Negative) Urine Mucus Rare H (None) /hpf Urine Opiates Screen Detected H (NotDetected) U Benzodiazepines Scrn Detected H (NotDetected) U Marijuana (THC) Screen Detected H (NotDetected) Assessment and Plan Assessment: Suicidal ideation with skin cut wounds on the bilateral forearm Bipolar disorder with depression currently Chronic back pain/sciatica and previous history of back injury Nicotine addiction History of renal stones status post lithotripsy Facet syndrome Plan: Patient be continued on current management. Laboratory data reviewed. Normal liver enzymes and thyroid function tests. Continue the wound care with dry dressing and antibiotic cream application. Follow closely and further recommendations based on the clinical course. Thank you for your consult Time with Patient: Greater than 30
[2018-03-22] MEDS: NICOTINE 14MG/24HR PATCH TRANSDERM SCH (08:27)
[2018-03-22] MEDS: BACITRACIN 500 UNIT/GM OINT 28.4 GM TUBE TOPICAL SCH ×2 (08:27→08:32)
[2018-03-22] MEDS: ETODOLAC 400 MG TAB PO SCH (08:28)
[2018-03-22] MEDS: lamoTRIgine 25 MG TAB PO SCH (08:29)
[2018-03-22] MEDS: busPIRone HCl 5 MG TAB PO SCH ×3 (08:29→21:18)
[2018-03-22] MEDS: LORazepam 1 MG TAB PO SCH (08:29)
--- NOTE | 2018-03-22 11:37 | P.PN ---
Progress Note - Text Progress Note Date: 03/22/18 Interval History: Patient is a 38-year-old female who was seen today and she reports that she is still having withdrawal symptoms complaining of diarrhea and sweats. Patient states that she is also feeling tremulous. Patient states that she is been attending groups and has crying spells and she thinks about her kids. Patient reports no side effects from the medication that was begun yesterday. She states that she is not having any current suicidal ideation. Mental Status: Appearance/Attitude: Patient is casually dressed, makes good eye contact and is cooperative. Behavior: patient does not exhibit any psychomotor agitation or retardation but is reporting feeling tremulous Speech/Language: patient's speech is spontaneous of normal volume and rhythm and she is coherent. Thought Process: patient is goal-directed there is no evidence of loose association or flight of ideas Thought Content: Patient denies auditory or visual hallucinations no delusions or paranoid ideation is elicited. Patient reports continuing to feel that she is in withdrawal with sweats and diarrhea. She states that she did not sleep well last evening. Patient is reporting that she is feeling slightly less depressed but no current suicidal ideation. Suicidal/Homicidal Ideation: Patient denies any current suicidal or homicidal ideation Sensorium/Cognition: patient is alert and oriented to person, place, and time and her recent and remote memory are grossly intact Mood/Affect: Patient's mood is tearful at times as well as complaining of feeling depressed and her affect is appropriate to her mood. Insight/Judgment: Patient's insight and judgment are fair Assessment: Patient stable, she is reporting continued withdrawal symptoms of diarrhea sweats and tremulousness. Patient is also reporting that she did not sleep well and was up during the night and wants her nicotine patch increased she is smoking 3 packs a day on the outside. Patient reports no current suicidal ideation. Patient did request that her Ativan be increased and I explained to her that the only change was changing her from standing to when necessary in the same interval 4 times a day. Patient states that she's been attending groups. Plan: patient will continue on BuSpar 5 mg 3 times a day, Lamictal 25 mg daily and Latuda 20 mg at dinnertime. We will increase her Latuda and BuSpar beginning tomorrow as these medications were only started yesterday. Patient will continue on Ativan 1 mg 4 times a day as needed for withdrawal symptoms as well as Imodium and/or Zofran for other control of symptoms of withdrawal. Patient was encouraged to continue attending groups and activities. Patient continues to require hospitalization to further stabilize her mood.
[2018-03-22] MEDS: LORazepam 1 MG TAB PO PRN ×2 (14:16→21:21)
[2018-03-22] MEDS: ACETAMINOPHEN TAB 325 MG TAB PO PRN (14:26)
[2018-03-22] MEDS: LURASIDONE 40 MG TAB PO SCH (16:58)
[2018-03-23] MEDS: LORazepam 1 MG TAB PO PRN ×3 (06:41→20:55)
[2018-03-23] MEDS: ETODOLAC 400 MG TAB PO SCH (08:03)
[2018-03-23] MEDS: NICOTINE 21MG/24HR PATCH TRANSDERM SCH (08:03)
[2018-03-23] MEDS: busPIRone HCl 5 MG TAB PO SCH ×3 (08:04→20:55)
[2018-03-23] MEDS: lamoTRIgine 25 MG TAB PO SCH (08:04)
[2018-03-23] MEDS: BACITRACIN 500 UNIT/GM OINT 28.4 GM TUBE TOPICAL SCH (08:15)
--- NOTE | 2018-03-23 10:48 | P.PN ---
Progress Note - Text Progress Note Date: 03/23/18 Interval History: Patient is a 38-year-old female who was seen today and she reports that she is feeling great and is cracking jokes. She states her mood is more level and she's been caring for her ADLs better. She states that she is eating better and reports no nausea or diarrhea. She states that she slept about 7 hours last night and feels rested. Patient states that she's been attending groups and activities. Patient reports that she is not having any further withdrawal symptoms but complains of her anxiety still being poorly controlled. Mental Status: Appearance/Attitude: Patient is appropriately dressed, makes good eye contact and is cooperative. Behavior: Patient does not exhibit any psychomotor agitation or retardation. Speech/Language: Patient's speech is spontaneous and normal volume and rhythm and she is coherent. Thought Process: Patient is goal-directed there is no evidence of loose association or flight of ideas Thought Content: Patient denies auditory or visual hallucinations no delusions or paranoid ideation or elicited. Patient reports that she is feeling much better and slept 7 hours last night and states that she is eating better reporting no nausea or diarrhea or other symptoms of withdrawal from opiates. Patient states that she is continuing to feel anxious but cannot tell me what that is about. She states that she is tearful when she discusses her children and the fact that they miss her and she is here in the hospital. Suicidal/Homicidal Ideation: Patient denies any current suicidal or homicidal ideation. Sensorium/Cognition: She is alert and oriented to person, place, and time and her recent and remote memory are grossly intact. Mood/Affect: Patient's mood is pleasant patient continues to complain of anxiety , her affect is appropriate. Insight/Judgment: Patient's insight and judgment are fair. Assessment: Patient presents and states that she is feeling great stating that she is sleeping well, she denied any withdrawal symptoms stating she is not having any nausea or diarrhea and is eating better. She reports she slept for 7 hours last night. Patient reports no side effects from the medication and states that her mood is much more level. However she continues to complain of anxiety and has been taking Ativan 1 mg 4 times a day. Patient states she's been attending groups and activities. She states that her children miss her and she wants to return home as soon as possible. Plan: Will increase patient's Latuda 40 mg daily at bedtime, continue Lamictal 25 mg daily as well as BuSpar 5 mg 3 times a day. I will decrease the patient' s Ativan to 1 mg 3 times a day on an as-needed basis and I discussed with the patient that we need to assess her level of anxiety off of the Ativan she is not going to be just discharged on Ativan. Should the patient's anxiety increase her BuSpar can certainly be increased as well. Patient continues to require hospitalization to further stabilize her mood but anticipate discharge within the next day or 2.
[2018-03-23] MEDS: ACETAMINOPHEN TAB 325 MG TAB PO PRN (17:04)
[2018-03-23] MEDS ORDERED: LURASIDONE 40 MG TAB PO SCH (18:00)
[2018-03-24] MEDS: LORazepam 1 MG TAB PO PRN (06:29)
[2018-03-24] MEDS: NICOTINE 21MG/24HR PATCH TRANSDERM SCH (06:30)
[2018-03-24 06:56] VITALS: BP 121/86; PULSE 82; RESP 16; TEMP 97.8
[2018-03-24] MEDS: BACITRACIN 500 UNIT/GM OINT 28.4 GM TUBE TOPICAL SCH (08:42)
[2018-03-24] MEDS: ETODOLAC 400 MG TAB PO SCH (08:42)
[2018-03-24] MEDS: busPIRone HCl 5 MG TAB PO SCH (08:42)
[2018-03-24] MEDS: lamoTRIgine 25 MG TAB PO SCH (08:42)
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
== END 2018-03-24 12:50 | disposition home or self-care (01) | DRG 885 ==
LOC: EC 18:46 → 3MHU 20:17
PROVIDERS: ADMIT Psychiatry & Neurology Psychiatry; ATTEND Psychiatry & Neurology Psychiatry
DX: F31.5 Bipolar disorder, current episode depressed, severe, with psychotic features (principal); R45.851 Suicidal ideations; F11.90 Opioid use, unspecified, uncomplicated; F12.90 Cannabis use, unspecified, uncomplicated; F17.210 Nicotine dependence, cigarettes, uncomplicated; F41.0 Panic disorder [episodic paroxysmal anxiety]; M54.30 Sciatica, unspecified side; Z79.899 Other long term (current) drug therapy; Z88.5 Allergy status to narcotic agent; Z88.6 Allergy status to analgesic agent; Z91.012 Allergy to eggs; Z87.442 Personal history of urinary calculi; Z91.5 Personal history of self-harm; Z98.51 Tubal ligation status; Z80.1 Family history of malignant neoplasm of trachea, bronchus and lung
CPT/HCPCS: 80053; 80306; 81001; 81025; 82075; 84443; 85025; 99285

== ENCOUNTER 2018-10-14 10:07 | Emergency (ER) | payer MEDICARE, OTHER ==
[2018-10-14 10:24] VITALS: RESP 18
[2018-10-14] MEDS ORDERED: ONDANSETRON 4 MG/2 ML VIAL IVP STA ×2 (11:13→14:08)
[2018-10-14] MEDS ORDERED: MORPHINE SULFATE 4 MG/ML SYRINGE IV STA (11:13)
[2018-10-14] MEDS ORDERED: SODIUM CHLORIDE 0.9% 1,000 ML IV STA (11:13)
--- NOTE | 2018-10-14 11:14 | ED ---
Abdominal Pain HPI - General Chief Complaint: Abdominal Pain Stated Complaint: vomiting/abdominal pain Time Seen by Provider: 10/14/18 10:29 Source: patient, RN notes reviewed, old records reviewed Mode of arrival: ambulatory - History of Present Illness Initial Comments: 38-year-old female presents emergency department today with chief complaint of abdominal pain. Patient reports that she's not had a bowel movement for the past week until 3 days ago. Patient states she's had multiple episodes of vomiting. No bloody emesis or bloody stool. She reports no pain with urination. She reports that diffuse abdominal pain worsen the right lower quadrant and right upper quadrant. Patient states that surgical history includes tubal ligation. - Related Data Home Medications Medication Instructions Recorded Confirmed Lurasidone [Latuda] 40 mg PO DAILY@1800 10/14/18 10/14/18 lamoTRIgine [LaMICtal] 50 mg PO DAILY 10/14/18 10/14/18 Previous Rx's Medication Instructions Recorded Bisacodyl [Dulcolax] 10 mg PO ONCE #20 tablet. 10/14/18 Ciprofloxacin HCl [Cipro] 500 mg PO BID 3 Days #6 tab 10/14/18 traMADol HCl [Ultram] 50 mg PO Q6HR PRN 3 Days #12 tab 10/14/18 Allergies Allergy/AdvReac Type Severity Reaction Status Date / Time codeine phosphate Allergy Itching Verified 10/14/18 10:43 [From Tylenol-Codeine #3] egg AdvReac DIGESTIVE Verified 10/14/18 10:43 ISSUES ibuprofen [From Motrin] AdvReac Stomach Verified 10/14/18 10:43 bleed Review of Systems ROS Statement: Those systems with pertinent positive or pertinent negative responses have been documented in the HPI. ROS Other: All systems not noted in ROS Statement are negative. Past Medical History Additional Past Medical History / Comment(s): kidney stones, facet syndrome, back pain, sciatica, bipolar History of Any Multi-Drug Resistant Organisms: None Reported Past Surgical History: Hernia Repair, Tubal Ligation Additional Past Surgical History / Comment(s): lithotripsy, hx of kidney stones Past Psychological History: Anxiety, Bipolar, Depression, Schizoaffective Disorder Smoking Status: Current every day smoker Past Alcohol Use History: None Reported Past Drug Use History: None Reported General Exam - General Exam Comments Initial Comments: 38-year-old female Patient Patient appears in moderate discomfort. General appearance: alert, in no apparent distress Head exam: Present: atraumatic, normocephalic, normal inspection Eye exam: Present: normal appearance, PERRL, EOMI. Absent: scleral icterus, conjunctival injection, periorbital swelling ENT exam: Present: normal exam, mucous membranes moist Neck exam: Present: normal inspection. Absent: tenderness, meningismus, lymphadenopathy Respiratory exam: Present: normal lung sounds bilaterally. Absent: respiratory distress, wheezes, rales, rhonchi, stridor Cardiovascular Exam: Present: regular rate, normal rhythm, normal heart sounds. Absent: systolic murmur, diastolic murmur, rubs, gallop, clicks GI/Abdominal exam: Present: soft, tenderness (Right lower quadrant and right upper quadrant tenderness on exam.), normal bowel sounds. Absent: distended, guarding, rebound, rigid Extremities exam: Present: normal inspection, full ROM, normal capillary refill. Absent: tenderness, pedal edema, joint swelling, calf tenderness Back exam: Present: normal inspection Neurological exam: Present: alert, oriented X3, CN II-XII intact Psychiatric exam: Present: normal affect, normal mood Skin exam: Present: warm, dry, intact, normal color. Absent: rash Course Vital Signs 10/14/18 10:19 Temperature 98.9 F Pulse Rate 83 Respiratory 18 Rate Blood Pressure 131/93 O2 Sat by Pulse 100 Oximetry Medical Decision Making - Medical Decision Making 38-year-old female presents to return today with acute abdominal pain. Initially was concern for constipation Patient a bowel movement 2 days ago. Patient states since that time she's been having progressive pain. At this time we did check lab work and perform CT her abdomen due to severe tenderness. She is given IV fluids and pain medication. Patient's upper shows mild leukocytosis of 12,000.4. Liver enzymes, kidney functions within normal limits. Urinalysis is negative for any acute process per to have some RBCs. We will send for urine culture. At this time Patient will be discharged due to CT findings showing just some abdominal ileus. And lack of distention which may be enteritis or inflammatory etiology. There is no sign of appendicitis. Is also evidence of a right ovarian cyst. And also like a chronic appearing splenic lesion that was there are 2016. Patient was informed of all these results. I discussed that we'll treat the Patient this time for enteritis, nausea medication pain medicine, stool softeners. Discussed following up with primary care provider. All questions answered. - Lab Data Result diagrams: 10/14/18 11:23 10/14/18 11:23 Lab Results 10/14/18 10/14/18 10/14/18 Range/Units 11:23 11:23 11:23 WBC 12.4 H (3.8-10.6) k/uL RBC 5.04 (3.80-5.40) m/uL Hgb 14.9 (11.4-16.0) gm/dL Hct 45.2 (34.0-46.0) % MCV 89.7 (80.0-100.0) fL MCH 29.6 (25.0-35.0) pg MCHC 33.0 (31.0-37.0) g/dL RDW 13.0 (11.5-15.5) % Plt Count 342 (150-450) k/uL Neutrophils % 84 % Lymphocytes % 11 % Monocytes % 2 % Eosinophils % 1 % Basophils % 0 % Neutrophils # 10.4 H (1.3-7.7) k/uL Lymphocytes # 1.4 (1.0-4.8) k/uL Monocytes # 0.3 (0-1.0) k/uL Eosinophils # 0.2 (0-0.7) k/uL Basophils # 0.0 (0-0.2) k/uL PT 10.1 (9.0-12.0) sec INR 1.0 (<1.2) APTT 25.1 (22.0-30.0) sec Sodium 142 (137-145) mmol/L Potassium 4.8 (3.5-5.1) mmol/L Chloride 109 H (98-107) mmol/L Carbon Dioxide 24 (22-30) mmol/L Anion Gap 9 mmol/L BUN 7 (7-17) mg/dL Creatinine 0.77 (0.52-1.04) mg/dL Est GFR (CKD-EPI)AfAm >90 (>60 ml/min/1.73 sqM) Est GFR (CKD-EPI)NonAf >90 (>60 ml/min/1.73 sqM) Glucose 102 H (74-99) mg/dL Calcium 9.7 (8.4-10.2) mg/dL Total Bilirubin 0.3 (0.2-1.3) mg/dL AST 15 (14-36) U/L ALT 10 (9-52) U/L Alkaline Phosphatase 54 (38-126) U/L Total Protein 7.3 (6.3-8.2) g/dL Albumin 4.5 (3.5-5.0) g/dL Amylase 71 (30-110) U/L Lipase 58 (23-300) U/L Urine Color Urine Appearance (Clear) Urine pH (5.0-8.0) Ur Specific [place] (1.001-1.035) Urine Protein (Negative) Urine Glucose (UA) (Negative) Urine Ketones (Negative) Urine Blood (Negative) Urine Nitrite (Negative) Urine Bilirubin (Negative) Urine Urobilinogen (<2.0) mg/dL Ur Leukocyte Esterase (Negative) Urine RBC (0-5) /hpf Urine WBC (0-5) /hpf Ur Squamous Epith Cells (0-4) /hpf 10/14/18 Range/Units 13:20 WBC (3.8-10.6) k/uL RBC (3.80-5.40) m/uL Hgb (11.4-16.0) gm/dL Hct (34.0-46.0) % MCV (80.0-100.0) fL MCH (25.0-35.0) pg MCHC (31.0-37.0) g/dL RDW (11.5-15.5) % Plt Count (150-450) k/uL Neutrophils % % Lymphocytes % % Monocytes % % Eosinophils % % Basophils % % Neutrophils # (1.3-7.7) k/uL Lymphocytes # (1.0-4.8) k/uL Monocytes # (0-1.0) k/uL Eosinophils # (0-0.7) k/uL Basophils # (0-0.2) k/uL PT (9.0-12.0) sec INR (<1.2) APTT (22.0-30.0) sec Sodium (137-145) mmol/L Potassium (3.5-5.1) mmol/L Chloride (98-107) mmol/L Carbon Dioxide (22-30) mmol/L Anion Gap mmol/L BUN (7-17) mg/dL Creatinine (0.52-1.04) mg/dL Est GFR (CKD-EPI)AfAm (>60 ml/min/1.73 sqM) Est GFR (CKD-EPI)NonAf (>60 ml/min/1.73 sqM) Glucose (74-99) mg/dL Calcium (8.4-10.2) mg/dL Total Bilirubin (0.2-1.3) mg/dL AST (14-36) U/L ALT (9-52) U/L Alkaline Phosphatase (38-126) U/L Total Protein (6.3-8.2) g/dL Albumin (3.5-5.0) g/dL Amylase (30-110) U/L Lipase (23-300) U/L Urine Color Light Yellow Urine Appearance Clear (Clear) Urine pH 8.0 (5.0-8.0) Ur Specific [place] 1.037 H (1.001-1.035) Urine Protein Negative (Negative) Urine Glucose (UA) Negative (Negative) Urine Ketones Negative (Negative) Urine Blood Trace H (Negative) Urine Nitrite Negative (Negative) Urine Bilirubin Negative (Negative) Urine Urobilinogen <2.0 (<2.0) mg/dL Ur Leukocyte Esterase Small H (Negative) Urine RBC 7 H (0-5) /hpf Urine WBC 1 (0-5) /hpf Ur Squamous Epith Cells 6 H (0-4) /hpf - Radiology Data Radiology results: report reviewed Findings suggest abdominal ileus or costal loops of this managed small bowel left upper quadrant really taken weight essential mononeuritis inflammatory pursue etiology. No signs of acute sinusitis. Cranial waiting appearing right ovarian cyst adjacent to ovarian follicle. Similar appearing splenic lesion on 2016 exam. Likely acquired secondary splenic cyst is they're peripheral calcifications. Disposition Clinical Impression: Enteritis, Right ovarian cyst Disposition: HOME SELF-CARE Condition: Good Instructions: Enteritis (ED), Ovarian Cyst (ED) Additional Instructions: Patient should've clear liquid diet. Take the medication as prescribed. Follow -up with PCP. Patient's emergency department if any alarming signs or symptoms occur. Prescriptions: Bisacodyl [Dulcolax] 10 mg PO ONCE #20 tablet. Ciprofloxacin HCl [Cipro] 500 mg PO BID 3 Days #6 tab traMADol HCl [Ultram] 50 mg PO Q6HR PRN 3 Days #12 tab PRN Reason: Pain Is patient prescribed a controlled substance at d/c from ED?: No Referrals: Vamshi Cooper MD [Primary Care Provider] - 1-2 days Time of Disposition: 14:11
[2018-10-14 11:43] LABS: Basophils % (A) 0 %; Eosinophils # (A) 0.2 k/uL (0-0.7); Eosinophils % (A) 1 %; HCT 45.2 % (34.0-46.0); HGB 14.9 gm/dL (11.4-16.0); Lymphocytes # (A) 1.4 k/uL (1.0-4.8); Lymphocytes % (A) 11 %; MCH 29.6 pg (25.0-35.0); MCV 89.7 fL (80.0-100.0); Mean Platelet Volume 6.7; Monocytes # (A) 0.3 k/uL (0-1.0); Monocytes % (A) 2 %; Neutrophils # (A) 10.4 k/uL (1.3-7.7); Neutrophils % (A) 84 %; Platelet Count 342 k/uL (150-450); RBC 5.04 m/uL (3.80-5.40); WBC 12.4 k/uL (3.8-10.6)
[2018-10-14 11:53] LABS: ALT 10 U/L (9-52); AST 15 U/L (14-36); Albumin 4.5 g/dL (3.5-5.0); Alkaline Phosphatase 54 U/L (38-126); Amylase 71 U/L (30-110); Anion Gap 9 mmol/L; Blood Urea Nitrogen 7 mg/dL (7-17); Calcium 9.7 mg/dL (8.4-10.2); Carbon Dioxide 24 mmol/L (22-30); Chloride 109 mmol/L (98-107); Glucose 102 mg/dL (74-99); Lipase 58 U/L (23-300); Potassium 4.8 mmol/L (3.5-5.1); Sodium 142 mmol/L (137-145); Total Bilirubin 0.3 mg/dL (0.2-1.3); Total Protein 7.3 g/dL (6.3-8.2)
[2018-10-14 11:59] LABS: Partial Thromboplastin Time 25.1 sec (22.0-30.0); Prothrombin Time 10.1 sec (9.0-12.0)
--- NOTE | 2018-10-14 13:19 | CT ---
EXAMINATION TYPE: CT abdomen pelvis w con DATE OF EXAM: 10/14/2018 HISTORY: Vomiting and abdominal pain CT DLP: 710.2mGycm Automated Exposure Control for Dose Reduction was Utilized. CONTRAST: CT scan of the abdomen and pelvis is performed with IV Contrast, patient injected with 100 ml mL of I sovue 300. COMPARISON: 05/04/2016 FINDINGS: LUNG BASES: No significant abnormality is appreciated. LIVER/GB: Minimal hypoattenuation in a wedge-shaped configuration is seen near the fissure for the fa lciform ligament such as on series 201 image 23 most commonly related to hepatic steatosis. No cholel ithiasis. PANCREAS: No significant abnormality is seen. SPLEEN: There is an unchanged approximately 2.4 cm cystic splenic lesion with peripheral punctate naeem cifications in comparison to exam of 05/04/2016, possibly related to an acquired splenic cyst. There i s a small splenule adjacent to the [place] spleen. ADRENALS: No significant abnormality is seen. KIDNEYS: No significant abnormality is seen. BOWEL: The appendix is partially air-filled and within normal limits of size without periappendiceal fat stranding coiling within the right lower quadrant. Numerous loops of small bowel demonstrate smal l bowel feces sign indicative of increased transit time/ileus. Cluster loops of matted small bowel ar e seen within the left upper quadrant with descending colonic decompression. Overall there is a moder ate amount retained colonic stool and limited evaluation of the bowel secondary to lack of oral contr ast UTERUS/ADNEXA: Crenulated appearing right ovarian dominant follicle or involuting cyst is present cyrus suring 2.1 cm on image 73. Tubal ligation clips are noted. Possible paraovarian cyst or areas free fl uid is seen within the pelvis in the right lower quadrant on image 65. LYMPH NODES: No greater than 1cm abdominal or pelvic lymph nodes are appreciated. OSSEOUS STRUCTURES: No significant abnormality is seen. OTHER: There is a small fat filled umbilical hernia present. IMPRESSION: 1. Findings suggesting abdominal ileus and cluster loops of matted small bowel in the left upper quad rant that could relate to incomplete distention or mild enteritis of inflammatory or infectious etiol ogy. 2. No CT evidence of acute appendicitis. 3. Crenulated appearing involuting right ovarian cyst or follicle and adjacent possible paraovarian f ollicle or small amount of free fluid. 4. Similar-appearing splenic lesion to the exam of 2015 likely an acquired secondary splenic cyst as there are peripheral calcifications.
[2018-10-14 13:53] LABS: Appearance,Urine Clear (Clear); Bilirubin,Urine Negative (Negative); Blood,Urine Trace (Negative); Color,Urine Light Yellow; Glucose,Urine (UA) Negative (Negative); Ketones,Urine Negative (Negative); Leukocyte Esterase,Urine Small (Negative); Nitrite,Urine Negative (Negative); Protein,Urine Negative (Negative); RBC,Urine 7 /hpf (0-5); Specific Gravity,Urine 1.037 (1.001-1.035); Squamous Epithelial Cell,Urine 6 /hpf (0-4); Urobilinogen,Urine <2.0 mg/dL (<2.0); WBC,Urine 1 /hpf (0-5)
[2018-10-14] MEDS ORDERED: MORPHINE SULFATE 4 MG/ML SYRINGE IVP STA (14:08)
[2018-10-14 14:45] VITALS: BP 145/98; PULSE 72; TEMP 99.9
== END 2018-10-14 14:40 | disposition home or self-care (01) ==
LOC: EC 10:07
DX: K52.9 Noninfective gastroenteritis and colitis, unspecified (principal); N83.201 Unspecified ovarian cyst, right side; F31.9 Bipolar disorder, unspecified; F25.9 Schizoaffective disorder, unspecified; F17.200 Nicotine dependence, unspecified, uncomplicated; Z98.51 Tubal ligation status; Z87.442 Personal history of urinary calculi; Z98.890 Other specified postprocedural states; Z79.899 Other long term (current) drug therapy; Z88.5 Allergy status to narcotic agent; Z88.6 Allergy status to analgesic agent; Z91.012 Allergy to eggs
CPT/HCPCS: 36415; 74177; 80053; 81001; 82150; 83690; 85025; 85610; 85730; 96361; 96374; 96375; 96376; 99285

== ENCOUNTER 2020-08-23 09:33 | Emergency (ER) | payer MEDICARE, OTHER ==
[2020-08-23 09:49] VITALS: TEMP 97.7
[2020-08-23] MEDS ORDERED: ONDANSETRON 4 MG/2 ML VIAL IVP STA (10:10)
[2020-08-23] MEDS ORDERED: SODIUM CHLORIDE 0.9% 1,000 ML IV STA (10:10)
[2020-08-23] MEDS ORDERED: MORPHINE SULFATE 2 MG/ML SYRINGE IVP ONE ×2 (10:10→13:43)
--- NOTE | 2020-08-23 10:15 | ED ---
Abdominal Pain HPI - General Chief Complaint: Abdominal Pain Stated Complaint: Constipation, Side pain Time Seen by Provider: 08/23/20 09:56 Source: patient, RN notes reviewed, old records reviewed Mode of arrival: ambulatory Limitations: no limitations - History of Present Illness Initial Comments: 40-year-old female presents the ER today for evaluation complaint nausea and feeling bloated. She reports that she's not had a normal bowel movement in 3 weeks. She is reports that she is not even passing gas much. She states that she's been using enemas and stool softeners and suppositories but only has had clear liquid stool. Patient has had no fevers or chills. She reports that she is now developing some right-sided abdominal pain. Surgical history includes tubal ligation and umbilical hernia repair. - Related Data Home Medications Medication Instructions Recorded Confirmed Lurasidone [Latuda] 40 mg PO DAILY@1800 10/14/18 10/14/18 lamoTRIgine [LaMICtal] 50 mg PO DAILY 10/14/18 10/14/18 Previous Rx's Medication Instructions Recorded Ciprofloxacin HCl [Cipro] 500 mg PO BID 3 Days #6 tab 10/14/18 bisacodyL [Dulcolax] 10 mg PO ONCE #20 tablet. 10/14/18 traMADol HCl [Ultram] 50 mg PO Q6HR PRN 3 Days #12 tab 10/14/18 Ondansetron [Zofran ODT] 4 mg PO Q8HR PRN #10 tab 05/09/19 Magnesium Citrate 296 ml PO ONCE #2 bottle 08/23/20 bisacodyL [Dulcolax] 10 mg PO DAILY #20 tablet. 08/23/20 Allergies Allergy/AdvReac Type Severity Reaction Status Date / Time codeine phosphate Allergy Itching Verified 08/23/20 09:48 [From Tylenol-Codeine #3] egg AdvReac DIGESTIVE Verified 08/23/20 09:48 ISSUES ibuprofen [From Motrin] AdvReac Stomach Verified 08/23/20 09:48 bleed Review of Systems ROS Statement: Those systems with pertinent positive or pertinent negative responses have been documented in the HPI. ROS Other: All systems not noted in ROS Statement are negative. Past Medical History Additional Past Medical History / Comment(s): kidney stones, facet syndrome, back pain, sciatica, bipolar History of Any Multi-Drug Resistant Organisms: None Reported Past Surgical History: Hernia Repair, Tubal Ligation Additional Past Surgical History / Comment(s): lithotripsy, hx of kidney stones Past Psychological History: Anxiety, Bipolar, Depression, Schizoaffective Disorder Smoking Status: Current every day smoker Past Alcohol Use History: None Reported Past Drug Use History: None Reported General Exam Limitations: no limitations General appearance: alert, in no apparent distress Head exam: Present: atraumatic, normocephalic, normal inspection Eye exam: Present: normal appearance, PERRL, EOMI. Absent: scleral icterus, conjunctival injection, periorbital swelling ENT exam: Present: normal exam, mucous membranes moist Neck exam: Present: normal inspection. Absent: tenderness, meningismus, lymphadenopathy Respiratory exam: Present: normal lung sounds bilaterally. Absent: respiratory distress, wheezes, rales, rhonchi, stridor Cardiovascular Exam: Present: regular rate, normal rhythm, normal heart sounds. Absent: systolic murmur, diastolic murmur, rubs, gallop, clicks GI/Abdominal exam: Present: soft, tenderness (Right upper and lower quadrant), normal bowel sounds. Absent: distended, guarding, rebound, rigid Extremities exam: Present: normal inspection, full ROM, normal capillary refill. Absent: tenderness, pedal edema, joint swelling, calf tenderness Back exam: Present: normal inspection Neurological exam: Present: alert, oriented X3, CN II-XII intact Psychiatric exam: Present: normal affect, normal mood Skin exam: Present: warm, dry, intact, normal color. Absent: rash Course Vital Signs 08/23/20 08/23/20 09:44 11:07 Temperature 97.7 F Pulse Rate 88 Respiratory 16 17 Rate Blood Pressure 106/77 103/72 O2 Sat by Pulse 98 96 Oximetry Medical Decision Making - Medical Decision Making 40-year-old female presents the ER today for right abdominal pain, complaining concern for constipation. Patient's lab work showed evidence of hematuria. She states she is on her menstrual cycle. Discussed with concern for pain and may beats related to kidney stone. Abdomen the past. Patient's CT today was completed and shows no evidence of renal stones or hydronephrosis. Patient does have normal labs. CT shows evidence umbilical hernia some fat illness. No with her main complaint being constipation discussed Patient needs to be on a bowel regimen we'll give the Patient next citrate. Discussed Patient has no signs of obstruction or masses at this time. Discussed following up with PCP. - Lab Data Result diagrams: 08/23/20 10:24 08/23/20 10:24 Lab Results 08/23/20 08/23/20 08/23/20 Range/Units 10:24 10:24 10:24 WBC 13.2 H (3.8-10.6) k/uL RBC 5.28 (3.80-5.40) m/uL Hgb 16.3 H (11.4-16.0) gm/dL Hct 48.9 H (34.0-46.0) % MCV 92.5 (80.0-100.0) fL MCH 30.8 (25.0-35.0) pg MCHC 33.3 (31.0-37.0) g/dL RDW 12.6 (11.5-15.5) % Plt Count 289 (150-450) k/uL Neutrophils % 75 % Lymphocytes % 18 % Monocytes % 3 % Eosinophils % 3 % Basophils % 1 % Neutrophils # 9.9 H (1.3-7.7) k/uL Lymphocytes # 2.4 (1.0-4.8) k/uL Monocytes # 0.4 (0-1.0) k/uL Eosinophils # 0.3 (0-0.7) k/uL Basophils # 0.1 (0-0.2) k/uL Sodium (137-145) mmol/L Potassium (3.5-5.1) mmol/L Chloride (98-107) mmol/L Carbon Dioxide (22-30) mmol/L Anion Gap mmol/L BUN (7-17) mg/dL Creatinine (0.52-1.04) mg/dL Est GFR (CKD-EPI)AfAm (>60 ml/min/1.73 sqM) Est GFR (CKD-EPI)NonAf (>60 ml/min/1.73 sqM) Glucose (74-99) mg/dL Calcium (8.4-10.2) mg/dL Total Bilirubin (0.2-1.3) mg/dL AST (14-36) U/L ALT (4-34) U/L Alkaline Phosphatase (38-126) U/L Total Protein (6.3-8.2) g/dL Albumin (3.5-5.0) g/dL Amylase (30-110) U/L Lipase (23-300) U/L Urine Color Yellow Urine Appearance Clear (Clear) Urine pH 6.0 (5.0-8.0) Ur Specific [place] 1.010 (1.001-1.035) Urine Protein Negative (Negative) Urine Glucose (UA) Negative (Negative) Urine Ketones Negative (Negative) Urine Blood Large H (Negative) Urine Nitrite Negative (Negative) Urine Bilirubin Negative (Negative) Urine Urobilinogen <2.0 (<2.0) mg/dL Ur Leukocyte Esterase Negative (Negative) Urine RBC 120 H (0-5) /hpf Urine WBC 1 (0-5) /hpf Ur Squamous Epith Cells 3 (0-4) /hpf Urine Mucus Rare H (None) /hpf Urine HCG, Qual Not Detected (Not Detectd) 08/23/20 Range/Units 10:24 WBC (3.8-10.6) k/uL RBC (3.80-5.40) m/uL Hgb (11.4-16.0) gm/dL Hct (34.0-46.0) % MCV (80.0-100.0) fL MCH (25.0-35.0) pg MCHC (31.0-37.0) g/dL RDW (11.5-15.5) % Plt Count (150-450) k/uL Neutrophils % % Lymphocytes % % Monocytes % % Eosinophils % % Basophils % % Neutrophils # (1.3-7.7) k/uL Lymphocytes # (1.0-4.8) k/uL Monocytes # (0-1.0) k/uL Eosinophils # (0-0.7) k/uL Basophils # (0-0.2) k/uL Sodium 139 (137-145) mmol/L Potassium 3.7 (3.5-5.1) mmol/L Chloride 103 (98-107) mmol/L Carbon Dioxide 27 (22-30) mmol/L Anion Gap 9 mmol/L BUN 10 (7-17) mg/dL Creatinine 0.74 (0.52-1.04) mg/dL Est GFR (CKD-EPI)AfAm >90 (>60 ml/min/1.73 sqM) Est GFR (CKD-EPI)NonAf >90 (>60 ml/min/1.73 sqM) Glucose 116 H (74-99) mg/dL Calcium 9.0 (8.4-10.2) mg/dL Total Bilirubin 0.3 (0.2-1.3) mg/dL AST 18 (14-36) U/L ALT 10 (4-34) U/L Alkaline Phosphatase 81 (38-126) U/L Total Protein 6.3 (6.3-8.2) g/dL Albumin 3.9 (3.5-5.0) g/dL Amylase 43 (30-110) U/L Lipase 101 (23-300) U/L Urine Color Urine Appearance (Clear) Urine pH (5.0-8.0) Ur Specific [place] (1.001-1.035) Urine Protein (Negative) Urine Glucose (UA) (Negative) Urine Ketones (Negative) Urine Blood (Negative) Urine Nitrite (Negative) Urine Bilirubin (Negative) Urine Urobilinogen (<2.0) mg/dL Ur Leukocyte Esterase (Negative) Urine RBC (0-5) /hpf Urine WBC (0-5) /hpf Ur Squamous Epith Cells (0-4) /hpf Urine Mucus (None) /hpf Urine HCG, Qual (Not Detectd) - Radiology Data Radiology results: report reviewed No urethral lithiasis or hydronephrosis. Fact containing supraumbilical hernia with 5 x 5.6 x 6 x 1 cm sac. Small amount of fluid within the hernia may repr esent inflammatory fat. Disposition Clinical Impression: Hernia, Right sided abdominal pain, Hematuria Disposition: HOME SELF-CARE Condition: Good Instructions (If sedation given, give patient instructions): Abdominal Pain (ED) Additional Instructions: Patient is a clear liquid and bland diet for the next 48 hours. Using a bowel regimen and asked to treatment at home and stool softeners. Patient should follow-up with a surgeon regards to hernia and possible a colonoscopy. Prescriptions: bisacodyL [Dulcolax] 10 mg PO DAILY #20 tablet. Magnesium Citrate 296 ml PO ONCE #2 bottle Is patient prescribed a controlled substance at d/c from ED?: No Referrals: Zonia iHnkle MD [Primary Care Provider] - 1-2 days Luisana Santos MD [STAFF PHYSICIAN] - 1-2 days Time of Disposition: 13:38
[2020-08-23 10:47] LABS: Basophils # (A) 0.1 k/uL (0-0.2); Basophils % (A) 1 %; Eosinophils # (A) 0.3 k/uL (0-0.7); Eosinophils % (A) 3 %; HCT 48.9 % (34.0-46.0); HGB 16.3 gm/dL (11.4-16.0); Lymphocytes # (A) 2.4 k/uL (1.0-4.8); Lymphocytes % (A) 18 %; MCH 30.8 pg (25.0-35.0); MCHC 33.3 g/dL (31.0-37.0); MCV 92.5 fL (80.0-100.0); Mean Platelet Volume 7.3; Monocytes # (A) 0.4 k/uL (0-1.0); Monocytes % (A) 3 %; Neutrophils # (A) 9.9 k/uL (1.3-7.7); Neutrophils % (A) 75 %; Platelet Count 289 k/uL (150-450); RBC 5.28 m/uL (3.80-5.40); RDW 12.6 % (11.5-15.5); WBC 13.2 k/uL (3.8-10.6)
[2020-08-23 10:57] LABS: Appearance,Urine Clear (Clear); Bilirubin,Urine Negative (Negative); Blood,Urine Large (Negative); Color,Urine Yellow; Glucose,Urine (UA) Negative (Negative); Ketones,Urine Negative (Negative); Leukocyte Esterase,Urine Negative (Negative); Mucus,Urine Rare /hpf; Nitrite,Urine Negative (Negative); Protein,Urine Negative (Negative); RBC,Urine 120 /hpf (0-5); Squamous Epithelial Cell,Urine 3 /hpf (0-4); Urobilinogen,Urine <2.0 mg/dL (<2.0); WBC,Urine 1 /hpf (0-5)
--- NOTE | 2020-08-23 10:58 | XR ---
EXAMINATION TYPE: XR KUB DATE OF EXAM: 08/23/2020 10:45 AM CLINICAL HISTORY: Abdominal pain with distention. No bowel movements for 3 weeks TECHNIQUE: Two Upright KUB images of the abdomen are obtained. COMPARISON: CT abdomen and pelvis May 09, 2019. FINDINGS: Scattered gas is seen in non-distended small bowel loops. Gas and fecal material is seen in non-distended colon. Mild overall prominence of colonic fecal material right and transverse colon. T ubal ligation clips in the pelvis. Lung bases are clear. IMPRESSION: Overall nonobstructive bowel gas pattern remains present. Mild proximal colonic fecal stasis noted.
[2020-08-23 10:59] LABS: ALT 10 U/L (4-34); AST 18 U/L (14-36); African American GFR (CKD) >90 (>60 ml/min/1.73 sqM); Albumin 3.9 g/dL (3.5-5.0); Alkaline Phosphatase 81 U/L (38-126); Amylase 43 U/L (30-110); Anion Gap 9 mmol/L; Blood Urea Nitrogen 10 mg/dL (7-17); Carbon Dioxide 27 mmol/L (22-30); Chloride 103 mmol/L (98-107); Glucose 116 mg/dL (74-99); Non-African American GFR(CKD) >90 (>60 ml/min/1.73 sqM); Potassium 3.7 mmol/L (3.5-5.1); Sodium 139 mmol/L (137-145); Total Bilirubin 0.3 mg/dL (0.2-1.3); Total Protein 6.3 g/dL (6.3-8.2)
[2020-08-23 11:09] VITALS: RESP 17
[2020-08-23] MEDS ORDERED: KETOROLAC 15 MG/ML 1 ML VIAL IVP STA (11:20)
[2020-08-23] MEDS ORDERED: MORPHINE SULFATE 4 MG/ML SYRINGE IVP STA (11:20)
--- NOTE | 2020-08-23 12:42 | CT ---
EXAMINATION TYPE: CT abdomen pelvis wo con DATE OF EXAM: 08/23/2020 COMPARISON: CT abdomen pelvis 05/09/2019 HISTORY: Right sided flank pain with hematuria CT DLP: 922.8 mGycm Automated exposure control for dose reduction was used. TECHNIQUE: Helical acquisition of images was performed from the lung bases through the pelvis. CONTRAST: Performed without Oral Contrast and without intravenous contrast. FINDINGS: LUNG BASES: Normal. LIVER: Normal attenuation and size. BILIARY SYSTEM: Contracted gallbladder. No intrahepatic or extrahepatic biliary ductal dilatation. PANCREAS: No peripancreatic inflammation. SPLEEN: Not enlarged. Unchanged splenic cyst with peripheral calcification. Splenule. ADRENALS: Normal. KIDNEYS: No hydronephrosis or hydroureter. No urolithiasis. BOWEL: No evidence of bowel obstruction or inflammation. Appendicolith with otherwise normal appeara nce of the appendix. PERITONEUM: No free air is visualized. No free fluid. Fat-containing supraumbilical hernia with 2.4 cm fascial defect, and 5.0 x 5.6 x 6.1 cm hernia sac with a small amount of fluid within the hernia s ac. The sac is minimally increased in size versus 05/09/2019 CT. ADENOPATHY: No lymphadenopathy. PELVIS: Normal unenhanced appearance. Bilateral tubal ligation clips. VASCULATURE: No abdominal aortic aneurysm. MUSCULOSKELETAL: Mild degenerative changes of the thoracic spine. IMPRESSION: 1. No urolithiasis or hydronephrosis. 2. Fat-containing supraumbilical hernia with 5.0 x 5.6 x 6.1 cm sac. Small amount of fluid within th e hernia sac may represent inflamed fat
[2020-08-23 13:53] VITALS: BP 98/83; PULSE 73
== END 2020-08-23 13:56 | disposition home or self-care (01) ==
LOC: EC 09:33
DX: K42.9 Umbilical hernia without obstruction or gangrene (principal); R10.9 Unspecified abdominal pain; R31.9 Hematuria, unspecified; R14.0 Abdominal distension (gaseous); F41.9 Anxiety disorder, unspecified; F31.9 Bipolar disorder, unspecified; F17.200 Nicotine dependence, unspecified, uncomplicated; Z87.442 Personal history of urinary calculi; Z88.5 Allergy status to narcotic agent; Z91.012 Allergy to eggs; Z88.6 Allergy status to analgesic agent; Z98.890 Other specified postprocedural states
CPT/HCPCS: 99285; 96374; 96375 ×2; 96376 ×2; 96361 ×2; 36415; 80053; 82150; 83690; 85025; 81001; 81025; 74018; 74176; J2270 ×2; J2405; J1885

== ENCOUNTER 2021-05-09 10:37 | Emergency (ER) | payer MEDICARE, OTHER ==
[2021-05-09 10:53] VITALS: RESP 18; TEMP 98
[2021-05-09] MEDS ORDERED: ACETAMINOPHEN TAB 500 MG TAB PO STA (11:15)
--- NOTE | 2021-05-09 11:28 | ED ---
Lower Extremity Injury HPI - General Chief Complaint: Extremity Injury, Lower Stated Complaint: Foot injury/Inquicker Time Seen by Provider: 05/09/21 10:57 Source: patient Mode of arrival: wheelchair Limitations: no limitations - History of Present Illness Initial Comments: Patient is a 41-year-old female presenting to emergency Department with complain ts of right foot and ankle pain after she tripped and fell last night. Patient states she landed with her right knee bent under her. She is complaining mostly of pain in her right foot. She denies any previous injuries or surgeries to her right foot or knee. She did not hit her head, she has no other injuries from this fall. - Related Data Home Medications Medication Instructions Recorded Confirmed Lurasidone [Latuda] 40 mg PO DAILY@1800 10/14/18 10/14/18 lamoTRIgine [LaMICtal] 50 mg PO DAILY 10/14/18 10/14/18 Previous Rx's Medication Instructions Recorded Ciprofloxacin HCl [Cipro] 500 mg PO BID 3 Days #6 tab 10/14/18 bisacodyL [Dulcolax] 10 mg PO ONCE #20 tablet. 10/14/18 traMADol HCl [Ultram] 50 mg PO Q6HR PRN 3 Days #12 tab 10/14/18 Ondansetron [Zofran ODT] 4 mg PO Q8HR PRN #10 tab 05/09/19 Magnesium Citrate 296 ml PO ONCE #2 bottle 08/23/20 bisacodyL [Dulcolax] 10 mg PO DAILY #20 tablet. 08/23/20 HYDROcodone/APAP 5-325MG [[place] 1 tab PO Q6HR PRN 3 Days #12 tab 05/09/21 5-325] Allergies Allergy/AdvReac Type Severity Reaction Status Date / Time codeine phosphate Allergy Itching Verified 05/09/21 10:51 [From Tylenol-Codeine #3] egg AdvReac DIGESTIVE Verified 05/09/21 10:51 ISSUES ibuprofen [From Motrin] AdvReac Stomach Verified 05/09/21 10:51 bleed Review of Systems ROS Statement: Those systems with pertinent positive or pertinent negative responses have been documented in the HPI. ROS Other: All systems not noted in ROS Statement are negative. Past Medical History Additional Past Medical History / Comment(s): kidney stones, facet syndrome, back pain, sciatica, bipolar History of Any Multi-Drug Resistant Organisms: None Reported Past Surgical History: Hernia Repair, Tubal Ligation Additional Past Surgical History / Comment(s): lithotripsy, hx of kidney stones Past Psychological History: Anxiety, Bipolar, Depression, Schizoaffective Disorder Smoking Status: Current every day smoker Past Alcohol Use History: None Reported Past Drug Use History: Marijuana General Exam - General Exam Comments Initial Comments: GENERAL: Patient is well-developed and well-nourished. Patient is nontoxic and in no acute distress. HEAD: Atraumatic, normocephalic. EYES: Pupils equal round and reactive to light, extraocular movements intact, sclera anicteric, conjunctiva are normal. Eyelids were unremarkable. ENT: Nares patent, oropharynx clear without exudates. Moist mucous membranes. NECK: Normal range of motion, supple without lymphadenopathy or JVD. LUNGS: Unlabored respirations. Breath sounds clear to auscultation bilaterally and equal. No wheezes rales or rhonchi. HEART: Regular rate and rhythm without murmurs, rubs or gallops. ABDOMEN: Soft, nontender, normoactive bowel sounds. No guarding, no rebound. No masses appreciated. : Deferred MUSCULOSKELETAL: Patient has pain with palpation of the right lateral malleolus, entire right foot. She does have some moderate swelling of the right foot, neurovascular intact. She has full range of motion of the right knee, some mild tenderness to the posterior aspect of the right knee. No clubbing or cyanosis. SKIN: Warm, Dry, normal turgor, no rashes or lesions noted. Limitations: no limitations Course Vital Signs 05/09/21 05/09/21 10:51 13:54 Temperature 98 F 98 F Pulse Rate 110 H 90 Respiratory 18 18 Rate Blood Pressure 93/65 124/78 O2 Sat by Pulse 95 100 Oximetry Procedures - Orthopedic Splinting/Casting Injury #1 Side: right Lower Extremity Injury Location: foot Lower Extremity Immobilizer: posterior splint, Alonzo wrap, synthetic pre-padded splint Other Orthopedic Equipment: crutches Medical Decision Making - Medical Decision Making Patient is a 41-year-old female here for right ankle and foot pain after she fell last night. She did not hurt anything else, no other complaints. X-ray of the right foot reveals an acute fracture of the base of the second metatarsal with intra-articular extension and associated soft tissue swelling. I did speak with orthopedics, CARLY Calderon, who recommended a CT of the right foot as well as patient being splinted in a posterior splint and they will follow up with her in the office tomorrow. I did order a CT of the foot, this is pending. I was concerned for a Lisfranc injury. I discussed with patient and the importance of nonweightbearing, will give her crutches to go home with. She will follow-up with Dr. Tadeo tomorrow in the office. I did give her a small prescription for pain medication. Also talked about ice and elevation. She is in agreement with this plan of care and she is stable for discharge. Case discussed with Dr. Dempsey. Disposition Clinical Impression: Fracture of second metatarsal bone of right foot Disposition: HOME SELF-CARE Condition: Stable Instructions (If sedation given, give patient instructions): Foot Fracture in Adults (ED) Additional Instructions: Please return to the Emergency Department if symptoms worsen or any other concerns. Keep splint in place until follow-up with orthopedics. Apply ice to the area, elevation above the heart level. Use crutches, do not put any weight on the right lower extremity. Prescriptions: HYDROcodone/APAP 5-325MG [[facility] 5-325] 1 tab PO Q6HR PRN 3 Days #12 tab PRN Reason: Pain Is patient prescribed a controlled substance at d/c from ED?: Yes When asked, does pt state using other controlled substances?: No If prescribed controlled substance>3 days was MAPS reviewed?: Prescribed <3 Days If opioid is for acute pain is fill amount 7 days or less?: Yes If Rx opioid, was Start Talking consent form obtained?: Yes Referrals: lOesya Cerna MD [Primary Care Provider] - 1-2 days Jacob Tadeo DO [Doctor of Osteopathic Medicine] - 1-2 days Time of Disposition: 13:29
[2021-05-09] MEDS ORDERED: KETOROLAC 15 MG/ML 1 ML VIAL IM STA (11:34)
--- NOTE | 2021-05-09 11:55 | XR ---
EXAMINATION TYPE: XR ankle complete RT, XR foot complete RT DATE OF EXAM: 05/09/2021 CLINICAL HISTORY: Pain after fall TECHNIQUE: Frontal, lateral and oblique images of the right ankle and foot are obtained. COMPARISON: None. FINDINGS: There is an acute fracture of the base of the second metatarsal with intra-articular extension and as sociated soft tissue swelling. IMPRESSION: There is an acute fracture of the base of the second metatarsal with intra-articular extension and as sociated soft tissue swelling.
[2021-05-09] MEDS ORDERED: HYDROcodone/APAP 5-325MG 1 EACH TAB PO STA (12:41)
--- NOTE | 2021-05-09 13:14 | CT ---
EXAMINATION TYPE: CT foot RT wo con DATE OF EXAM: 05/09/2021 COMPARISON: Radiograph same day HISTORY: 41-year-old female for evaluation of fracture . TECHNIQUE: Contiguous axial scanning of the right foot without IV contrast. Coronal and sagittal shante nstructions performed. 3-D reconstruction generated on a dedicated independent workstation. CT DLP: 189 mGycm Automated exposure control for dose reduction was used. FINDINGS: Ankle mortise appears intact. Incidental os trigonum. Subtalar joint is aligned. Small os peroneum. A chilles tendon appears intact. Intra-articular fracture along the inferior margin of the first metatarsal base. Markedly comminuted intra-articular fracture of the second metatarsal base. Is articular surface step off at the second TMT joint of up to 3 mm and slight lateral displacement of the shaft of the metata rsal relative to the base. Dorsolateral fracture of the distal cuboid and also small avulsion fracture dorsal lateral distal lat eral cuneiform. Associated soft tissue swelling. IMPRESSION: 1. MARKEDLY COMMINUTED, INTRAARTICULAR FRACTURE SECOND METATARSAL BASE WITH UP TO 3 MM OF OF STEP-OFF ALONG THE SECOND TMT JOINT ARTICULAR SURFACE. MILD LATERAL DISPLACEMENT OF THE SHAFT RELATIVE TO THE BASE. FRACTURE FRAGMENTS INCORPORATE THE ATTACHMENT SITE OF THE LISFRANC LIGAMENT. 2. ADDITIONAL SMALL AVULSION FRACTURES ALONG THE LISFRANC LIGAMENT COMPLEX, NAMELY THE INFERIOR BASE OF THE FIRST METATARSAL AND SMALL FRACTURES ALONG THE DORSOLATERAL CUBOID AND DORSOLATERAL ASPECT OF THE LATERAL CUNEIFORM.
[2021-05-09 13:56] VITALS: BP 124/78; PULSE 90
== END 2021-05-09 13:56 | disposition home or self-care (01) ==
LOC: EC 10:37
DX: S92.321A Displaced fracture of second metatarsal bone, right foot, initial encounter for closed fracture (principal); F17.200 Nicotine dependence, unspecified, uncomplicated; Z88.5 Allergy status to narcotic agent; Z91.012 Allergy to eggs; Z88.6 Allergy status to analgesic agent; W01.0XXA Fall on same level from slipping, tripping and stumbling without subsequent striking against object, initial encounter
CPT/HCPCS: 73610; 73630; 73700; 96372; 99284; 29515; J1885

== ENCOUNTER 2021-06-08 23:09 | Emergency (ER) | payer MEDICARE, OTHER ==
[2021-06-08 23:28] VITALS: RESP 18
[2021-06-08] MEDS ORDERED: LORazepam 2 MG/ML INJ IV STA (23:34)
[2021-06-08] MEDS ORDERED: diphenhydrAMINE 50 MG/ML 1 ML VIAL IVP STA (23:35)
--- NOTE | 2021-06-08 23:41 | ED ---
Altered Mental Status HPI - General Chief Complaint: Altered Mental Status Stated Complaint: Altered Mental Status Time Seen by Provider: 06/08/21 23:12 Source: EMS Mode of arrival: EMS Limitations: altered mental status - History of Present Illness Initial Comments: This patient is a 41-year-old woman brought by ambulance to be evaluated for altered mental status. Most of the history comes from the patient's partner who is at the bedside. He states that she had gone to bed around 6 PM. She had awakened sometime after 10:30 and told him that she had to go to the bathroom, but he noticed that there was artery loss continence. The patient also seemed Shaky and he was concerned that she was having a seizure. When I interview the patient, she is disoriented, she is able to answer simple questions requiring only one or a couple of word answer. She is oriented to person and place but not the date. She is able to follow simple neurologic commands. MD Complaint: altered mental status Severity: moderate - Related Data Home Medications Medication Instructions Recorded Confirmed Lurasidone [Latuda] 40 mg PO DAILY@1800 10/14/18 10/14/18 lamoTRIgine [LaMICtal] 50 mg PO DAILY 10/14/18 10/14/18 Previous Rx's Medication Instructions Recorded Ciprofloxacin HCl [Cipro] 500 mg PO BID 3 Days #6 tab 10/14/18 bisacodyL [Dulcolax] 10 mg PO ONCE #20 tablet. 10/14/18 traMADol HCl [Ultram] 50 mg PO Q6HR PRN 3 Days #12 tab 10/14/18 Ondansetron [Zofran ODT] 4 mg PO Q8HR PRN #10 tab 05/09/19 Magnesium Citrate 296 ml PO ONCE #2 bottle 08/23/20 bisacodyL [Dulcolax] 10 mg PO DAILY #20 tablet. 08/23/20 HYDROcodone/APAP 5-325MG [[place] 1 tab PO Q6HR PRN 3 Days #12 tab 05/09/21 5-325] Allergies Allergy/AdvReac Type Severity Reaction Status Date / Time codeine phosphate Allergy Itching Verified 05/09/21 10:51 [From Tylenol-Codeine #3] egg AdvReac DIGESTIVE Verified 05/09/21 10:51 ISSUES ibuprofen [From Motrin] AdvReac Stomach Verified 05/09/21 10:51 bleed Review of Systems ROS Statement: Those systems with pertinent positive or pertinent negative responses have been documented in the HPI. ROS Other: All systems not noted in ROS Statement are negative. Limitations: ROS unobtainable due to patients medical condition Past Medical History Past Medical History: No Reported History Additional Past Medical History / Comment(s): kidney stones, facet syndrome, back pain, sciatica, bipolar History of Any Multi-Drug Resistant Organisms: None Reported Past Surgical History: Hernia Repair, Tubal Ligation Additional Past Surgical History / Comment(s): lithotripsy, hx of kidney stones, (L) foot surgery Past Psychological History: Anxiety, Bipolar, Depression, Schizoaffective Disorder Smoking Status: Current every day smoker Past Alcohol Use History: None Reported Past Drug Use History: Marijuana General Exam Limitations: altered mental status General appearance: alert Head exam: Present: atraumatic, normocephalic Eye exam: Present: normal appearance, PERRL, EOMI. Absent: scleral icterus, con junctival injection Pupils: Present: mydriatic ENT exam: Present: mucous membranes dry Neck exam: Present: normal inspection. Absent: tenderness, meningismus Respiratory exam: Present: normal lung sounds bilaterally. Absent: respiratory distress, wheezes, rales, rhonchi, stridor Cardiovascular Exam: Present: regular rate, normal rhythm, normal heart sounds. Absent: systolic murmur, diastolic murmur, rubs, gallop GI/Abdominal exam: Present: soft. Absent: distended, tenderness, guarding, rebound, rigid, mass Extremities exam: Present: normal inspection, normal capillary refill, other (There is a cast boot on the right lower extremity). Absent: pedal edema, calf tenderness Back exam: Present: normal inspection. Absent: CVA tenderness (R), CVA tenderness (L) Neurological exam: Present: alert, CN II-XII intact. Absent: oriented X3 (Oriented to person and place), motor sensory deficit Skin exam: Present: warm, dry, intact, normal color. Absent: rash Course Vital Signs 06/08/21 06/09/21 06/09/21 23:23 01:55 02:55 Temperature 98.5 F Pulse Rate 84 99 76 Respiratory 18 18 18 Rate Blood Pressure 127/94 124/90 116/83 O2 Sat by Pulse 98 96 96 Oximetry 06/09/21 05:24 Temperature 97.9 F Pulse Rate 90 Respiratory 18 Rate Blood Pressure 122/92 O2 Sat by Pulse Oximetry Medical Decision Making - Medical Decision Making Patient is a 41-year-old woman who does appear delirious. After removal of patient's cast boot, there is found to be significant warmth and some erythema to the dorsum of the right foot near her surgical site. Discussed case with the patient and with her partner, patient will be admitted for delirium, but given the suspected infection at her surgical site, will [facility] s[facility] back to [facility] so that she can have continuity of care with Dr. Gutierrez, her surgeon. The patient has been given dose of Unasyn and vancomycin. - Lab Data Result diagrams: 06/08/21 23:53 06/08/21 23:53 Lab Results 06/08/21 06/08/21 06/08/21 Range/Units 23:53 23:53 23:53 WBC 13.1 H (3.8-10.6) k/uL RBC 4.80 (3.80-5.40) m/uL Hgb 14.6 (11.4-16.0) gm/dL Hct 43.4 (34.0-46.0) % MCV 90.5 (80.0-100.0) fL MCH 30.4 (25.0-35.0) pg MCHC 33.6 (31.0-37.0) g/dL RDW 13.1 (11.5-15.5) % Plt Count 332 (150-450) k/uL MPV 7.3 Neutrophils % 81 % Lymphocytes % 13 % Monocytes % 2 % Eosinophils % 3 % Basophils % 1 % Neutrophils # 10.7 H (1.3-7.7) k/uL Lymphocytes # 1.6 (1.0-4.8) k/uL Monocytes # 0.3 (0-1.0) k/uL Eosinophils # 0.4 (0-0.7) k/uL Basophils # 0.1 (0-0.2) k/uL PT 9.6 (9.0-12.0) sec INR 0.9 (<1.2) APTT 23.9 (22.0-30.0) sec Sodium 143 (137-145) mmol/L Potassium 4.4 (3.5-5.1) mmol/L Chloride 111 H (98-107) mmol/L Carbon Dioxide 25 (22-30) mmol/L Anion Gap 7 mmol/L BUN 16 (7-17) mg/dL Creatinine 0.68 (0.52-1.04) mg/dL Est GFR (CKD-EPI)AfAm >90 (>60 ml/min/1.73 sqM) Est GFR (CKD-EPI)NonAf >90 (>60 ml/min/1.73 sqM) Glucose 134 H (74-99) mg/dL Calcium 9.6 (8.4-10.2) mg/dL Total Bilirubin 0.1 L (0.2-1.3) mg/dL AST 19 (14-36) U/L ALT 13 (4-34) U/L Alkaline Phosphatase 120 (38-126) U/L Ammonia (<30) umol/L CK-MB (CK-2) (0.0-2.4) ng/mL Troponin I (0.000-0.034) ng/mL Total Protein 6.8 (6.3-8.2) g/dL Albumin 4.2 (3.5-5.0) g/dL Urine Color Urine Appearance (Clear) Urine pH (5.0-8.0) Ur Specific [place] (1.001-1.035) Urine Protein (Negative) Urine Glucose (UA) (Negative) Urine Ketones (Negative) Urine Blood (Negative) Urine Nitrite (Negative) Urine Bilirubin (Negative) Urine Urobilinogen (<2.0) mg/dL Ur Leukocyte Esterase (Negative) Urine RBC (0-5) /hpf Urine WBC (0-5) /hpf Ur Squamous Epith Cells (0-4) /hpf Urine Opiates Screen (NotDetected) Ur Oxycodone Screen (NotDetected) Urine Methadone Screen (NotDetected) Ur Propoxyphene Screen (NotDetected) Ur Barbiturates Screen (NotDetected) U Tricyclic Antidepress (NotDetected) Ur Phencyclidine Scrn (NotDetected) Ur Amphetamines Screen (NotDetected) U Methamphetamines Scrn (NotDetected) U Benzodiazepines Scrn (NotDetected) Urine Cocaine Screen (NotDetected) U Marijuana (THC) Screen (NotDetected) Serum Alcohol <10 mg/dL 06/08/21 06/08/21 06/09/21 Range/Units 23:53 23:53 00:43 WBC (3.8-10.6) k/uL RBC (3.80-5.40) m/uL Hgb (11.4-16.0) gm/dL Hct (34.0-46.0) % MCV (80.0-100.0) fL MCH (25.0-35.0) pg MCHC (31.0-37.0) g/dL RDW (11.5-15.5) % Plt Count (150-450) k/uL MPV Neutrophils % % Lymphocytes % % Monocytes % % Eosinophils % % Basophils % % Neutrophils # (1.3-7.7) k/uL Lymphocytes # (1.0-4.8) k/uL Monocytes # (0-1.0) k/uL Eosinophils # (0-0.7) k/uL Basophils # (0-0.2) k/uL PT (9.0-12.0) sec INR (<1.2) APTT (22.0-30.0) sec Sodium (137-145) mmol/L Potassium (3.5-5.1) mmol/L Chloride (98-107) mmol/L Carbon Dioxide (22-30) mmol/L Anion Gap mmol/L BUN (7-17) mg/dL Creatinine (0.52-1.04) mg/dL Est GFR (CKD-EPI)AfAm (>60 ml/min/1.73 sqM) Est GFR (CKD-EPI)NonAf (>60 ml/min/1.73 sqM) Glucose (74-99) mg/dL Calcium (8.4-10.2) mg/dL Total Bilirubin (0.2-1.3) mg/dL AST (14-36) U/L ALT (4-34) U/L Alkaline Phosphatase (38-126) U/L Ammonia <9 (<30) umol/L CK-MB (CK-2) 0.3 (0.0-2.4) ng/mL Troponin I <0.012 (0.000-0.034) ng/mL Total Protein (6.3-8.2) g/dL Albumin (3.5-5.0) g/dL Urine Color Colorless Urine Appearance Clear (Clear) Urine pH 6.0 (5.0-8.0) Ur Specific [place] 1.006 (1.001-1.035) Urine Protein Negative (Negative) Urine Glucose (UA) Negative (Negative) Urine Ketones Negative (Negative) Urine Blood Small H (Negative) Urine Nitrite Negative (Negative) Urine Bilirubin Negative (Negative) Urine Urobilinogen <2.0 (<2.0) mg/dL Ur Leukocyte Esterase Negative (Negative) Urine RBC 1 (0-5) /hpf Urine WBC 1 (0-5) /hpf Ur Squamous Epith Cells <1 (0-4) /hpf Urine Opiates Screen Not Detected (NotDetected) Ur Oxycodone Screen Not Detected (NotDetected) Urine Methadone Screen Not Detected (NotDetected) Ur Propoxyphene Screen Not Detected (NotDetected) Ur Barbiturates Screen Not Detected (NotDetected) U Tricyclic Antidepress Not Detected (NotDetected) Ur Phencyclidine Scrn Not Detected (NotDetected) Ur Amphetamines Screen Not Detected (NotDetected) U Methamphetamines Scrn Not Detected (NotDetected) U Benzodiazepines Scrn Detected H (NotDetected) Urine Cocaine Screen Not Detected (NotDetected) U Marijuana (THC) Screen Detected H (NotDetected) Serum Alcohol mg/dL - EKG Data -: EKG Interpreted by Ne EKG shows normal: sinus rhythm, axis (Normal), intervals (Normal), QRS complexes (Left posterior fascicular block.), ST-T waves Rate: normal (Rate 78 bpm) Disposition Clinical Impression: Altered mental status, Foot infection Disposition: OTHER INSTITUTION NOT DEFINED Condition: Fair Instructions (If sedation given, give patient instructions): Altered Mental Status (ED) Is patient prescribed a controlled substance at d/c from ED?: No Referrals: Olesya Cerna MD [Primary Care Provider] - 1-2 days - Out of Hospital Transfer - Req. Specs Out of Hospital Transfer - Requested Specifics: Other Emergency Center
--- NOTE | 2021-06-08 23:55 | XR ---
EXAMINATION TYPE: XR chest 1V DATE OF EXAM: 06/08/2021 COMPARISON: 01/05/2017 HISTORY: Altered mental status TECHNIQUE: FINDINGS: Heart and mediastinum are normal. Lungs are clear. Diaphragm is normal. Bony thorax appears normal. IMPRESSION: Normal chest. No change.
[2021-06-09 00:07] LABS: Basophils # (A) 0.1 k/uL (0-0.2); Basophils % (A) 1 %; Eosinophils # (A) 0.4 k/uL (0-0.7); Eosinophils % (A) 3 %; HCT 43.4 % (34.0-46.0); HGB 14.6 gm/dL (11.4-16.0); Lymphocytes # (A) 1.6 k/uL (1.0-4.8); Lymphocytes % (A) 13 %; MCH 30.4 pg (25.0-35.0); MCHC 33.6 g/dL (31.0-37.0); MCV 90.5 fL (80.0-100.0); Mean Platelet Volume 7.3; Monocytes # (A) 0.3 k/uL (0-1.0); Monocytes % (A) 2 %; Neutrophils # (A) 10.7 k/uL (1.3-7.7); Neutrophils % (A) 81 %; Platelet Count 332 k/uL (150-450); RDW 13.1 % (11.5-15.5); WBC 13.1 k/uL (3.8-10.6)
[2021-06-09 00:21] LABS: ALT 13 U/L (4-34); AST 19 U/L (14-36); African American GFR (CKD) >90 (>60 ml/min/1.73 sqM); Albumin 4.2 g/dL (3.5-5.0); Alcohol <10 mg/dL; Alkaline Phosphatase 120 U/L (38-126); Anion Gap 7 mmol/L; Blood Urea Nitrogen 16 mg/dL (7-17); Calcium 9.6 mg/dL (8.4-10.2); Carbon Dioxide 25 mmol/L (22-30); Chloride 111 mmol/L (98-107); Glucose 134 mg/dL (74-99); Non-African American GFR(CKD) >90 (>60 ml/min/1.73 sqM); Potassium 4.4 mmol/L (3.5-5.1); Sodium 143 mmol/L (137-145); Total Bilirubin 0.1 mg/dL (0.2-1.3); Total Protein 6.8 g/dL (6.3-8.2)
--- NOTE | 2021-06-09 00:21 | CT ---
EXAMINATION TYPE: CT brain wo con DATE OF EXAM: 06/09/2021 COMPARISON: 07/21/2013 HISTORY: AMS CT DLP: 1127.4 mGycm Automated exposure control for dose reduction was used. Ventricles and sulci appear normal. There is no mass effect nor midline shift. There is no sign of in tracranial hemorrhage. The calvarium is intact. The skull base is intact. There is normal aeration of the mastoid sinuses. IMPRESSION: Negative unenhanced head CT scan. No change.
[2021-06-09 00:32] LABS: Creatine Kinase MB 0.3 ng/mL (0.0-2.4); Troponin I <0.012 ng/mL (0.000-0.034)
[2021-06-09 00:37] LABS: INR 0.9 (<1.2); Partial Thromboplastin Time 23.9 sec (22.0-30.0); Prothrombin Time 9.6 sec (9.0-12.0)
[2021-06-09 01:08] LABS: Appearance,Urine Clear (Clear); Bilirubin,Urine Negative (Negative); Blood,Urine Small (Negative); Color,Urine Colorless; Glucose,Urine (UA) Negative (Negative); Ketones,Urine Negative (Negative); Leukocyte Esterase,Urine Negative (Negative); Nitrite,Urine Negative (Negative); Protein,Urine Negative (Negative); RBC,Urine 1 /hpf (0-5); Specific Gravity,Urine 1.006 (1.001-1.035); Squamous Epithelial Cell,Urine <1 /hpf (0-4); Urobilinogen,Urine <2.0 mg/dL (<2.0); WBC,Urine 1 /hpf (0-5)
[2021-06-09 01:27] LABS: Amphetamine Screen,Urine Not Detected (NotDetected); Barbiturate Screen,Urine Not Detected (NotDetected); Benzodiazepines Screen,Urine Detected (NotDetected); Cocaine Screen,Urine Not Detected (NotDetected); Methadone Screen, Urine Not Detected (NotDetected); Opiate Screen,Urine Not Detected (NotDetected); Oxycodone Screen, Urine Not Detected (NotDetected); Phencyclidine Screen,Urine Not Detected (NotDetected); Tricyclic Antidepressant,Urine Not Detected (NotDetected); Urn Cannabinoid Scrn Detected (NotDetected)
[2021-06-09] MEDS ORDERED: VANCOMYCIN IV PER PHARMACY 1 EACH MISC MISCELLANE PRN (02:39)
[2021-06-09] MEDS ORDERED: AMPICILLIN-SULBACTAM 3 GM in SODIUM CHLORIDE 0.9% 100 ML IVPB STA (02:39)
[2021-06-09] MEDS ORDERED: VANCOMYCIN 1,250 MG in SODIUM CHLORIDE 0.9% 250 ML IVPB ONE (03:30)
[2021-06-09 05:26] VITALS: BP 122/92; PULSE 90; TEMP 97.9
[2021-06-09] MEDS ORDERED: VANCOMYCIN 1,250 MG in SODIUM CHLORIDE 0.9% 250 ML IVPB SCH (12:00)
== END 2021-06-09 06:05 | disposition other institution (70) ==
LOC: EC 23:09
DX: R41.82 Altered mental status, unspecified (principal); L08.9 Local infection of the skin and subcutaneous tissue, unspecified; F17.200 Nicotine dependence, unspecified, uncomplicated; Z88.5 Allergy status to narcotic agent; Z88.6 Allergy status to analgesic agent
CPT/HCPCS: 99285; 96365; 96366; 96367; 96375; 36415 ×2; 93005; 80053; 82140; 82553; 84484; 85025; 85610; 85730; 81001; 87040; 80306; 71045; 70450; G0480; J3370; J2060; J1200; J0295; 80320; 96374

== ENCOUNTER 2023-09-10 16:15 | Emergency (ER) | payer MEDICARE, OTHER ==
[2023-09-10 16:58] LABS: Basophils # (A) 0.1 k/uL (0-0.2); Basophils % (A) 0 %; Eosinophils # (A) 0.1 k/uL (0-0.7); Eosinophils % (A) 1 %; HCT 42.2 % (34.0-46.0); HGB 14.3 gm/dL (11.4-16.0); Lymphocytes # (A) 3.1 k/uL (1.0-4.8); Lymphocytes % (A) 27 %; MCH 28.3 pg (25.0-35.0); MCHC 33.8 g/dL (31.0-37.0); MCV 83.7 fL (80.0-100.0); Monocytes # (A) 0.4 k/uL (0-1.0); Monocytes % (A) 4 %; Neutrophils # (A) 7.9 k/uL (1.3-7.7); Neutrophils % (A) 68 %; Platelet Count 287 k/uL (150-450); RBC 5.04 m/uL (3.80-5.40); RDW 14.1 % (11.5-15.5); WBC 11.6 k/uL (3.8-10.6)
[2023-09-10 17:07] LABS: ALT 11 U/L (4-34); AST 16 U/L (14-36); African American GFR (CKD) >90 (>60 ml/min/1.73 sqM); Albumin 4.4 g/dL (3.5-5.0); Alkaline Phosphatase 102 U/L (38-126); Anion Gap 12 mmol/L; Blood Urea Nitrogen 15 mg/dL (7-17); Calcium 9.9 mg/dL (8.4-10.2); Carbon Dioxide 24 mmol/L (22-30); Chloride 103 mmol/L (98-107); Glucose 106 mg/dL (74-99); Non-African American GFR(CKD) >90 (>60 ml/min/1.73 sqM); Potassium 4.4 mmol/L (3.5-5.1); Sodium 139 mmol/L (137-145); Total Bilirubin 0.4 mg/dL (0.2-1.3)
--- NOTE | 2023-09-10 17:10 | XR ---
EXAMINATION TYPE: XR chest 2V DATE OF EXAM: 09/10/2023 4:57 PM CLINICAL INDICATION:Female, 43 years old with history of difficulty breathing; COMPARISON: Chest radiographs from 06/08/2021 TECHNIQUE: XR chest 2V Frontal and lateral views of the chest. FINDINGS: Lungs/Pleura: There is no evidence of pleural effusion, focal consolidation, or pneumothorax. Pulmonary vascularity: Unremarkable. Heart/mediastinum: Cardiomediastinal silhouette is unremarkable. Musculoskeletal: No acute osseous pathology. IMPRESSION: No acute cardiopulmonary disease/process.
[2023-09-10 17:17] LABS: INR 0.9 (<1.2); Partial Thromboplastin Time 24.8 sec (22.0-30.0); Prothrombin Time 10.3 sec (10.0-12.5)
--- NOTE | 2023-09-10 17:27 | ED ---
SOB HPI - General Source: patient, RN notes reviewed Mode of arrival: wheelchair Limitations: no limitations - History of Present Illness MD Complaint: shortness of breath <Jodie Parker - Last Filed: 09/10/23 17:27> <Annabella Spangler - Last Filed: 09/10/23 22:45> - General Chief Complaint: Shortness of Breath Stated Complaint: lung issue Time Seen by Provider: 09/10/23 17:26 - History of Present Illness Initial Comments: This is a 43 -year-old female presents emergency department for shortness of breath and rib pain. Reports increasing pain to the rib cage and chest area with movement and inspiration. She is a daily smoker but denies any history of respiratory or cardiac illnesses. (Jodie Parker) 43-year-old female presents the emergency department reporting to bilateral chest/lung pain. States that she had surgery yesterday on her left lower extremity by Dr. Gutierrez. She was placed on the vent. States that afterwards the patient has had pleuritic pain which is worse with movement as well. She has been taking tramadol for pain control however states this is not helping her chest pain. She admits to shortness of breath. Denies history of DVT or PE. She is not on any blood thinners. Denies concern for . She went to an urgent care who recommended that she come into the emergency department for PE evaluation. She denies any fevers chills or cough. No other alleviating, precipitating modifying factors (Annabella Spangler) - Related Data Home Medications Medication Instructions Recorded Confirmed Lurasidone [Latuda] 40 mg PO DAILY@1800 10/14/18 10/14/18 lamoTRIgine [LaMICtal] 50 mg PO DAILY 10/14/18 10/14/18 Previous Rx's Medication Instructions Recorded Ciprofloxacin HCl [Cipro] 500 mg PO BID 3 Days #6 tab 10/14/18 bisacodyL [Dulcolax] 10 mg PO ONCE #20 tablet. 10/14/18 traMADol HCl [Ultram] 50 mg PO Q6HR PRN 3 Days #12 tab 10/14/18 Ondansetron [Zofran ODT] 4 mg PO Q8HR PRN #10 tab 05/09/19 Magnesium Citrate 296 ml PO ONCE #2 bottle 08/23/20 bisacodyL [Dulcolax] 10 mg PO DAILY #20 tablet.dr 08/23/20 HYDROcodone/APAP 5-325MG [[place] 1 tab PO Q6HR PRN 3 Days #12 tab 05/09/21 5-325] HYDROcodone/APAP 10-325MG [[place] 1 tab PO Q4HR PRN 3 Days #18 tab 09/10/23 10-325] Allergies Allergy/AdvReac Type Severity Reaction Status Date / Time codeine phosphate Allergy Itching Verified 09/10/23 16:26 [From Tylenol-Codeine #3] prochlorperazine Allergy Anaphylaxis Verified 09/10/23 16:26 [From Compazine] egg AdvReac DIGESTIVE Verified 09/10/23 16:26 ISSUES ibuprofen [From Motrin] AdvReac Stomach Verified 05/09/21 10:51 bleed Review of Systems ROS Other: All systems not noted in ROS Statement are negative. <Jodie Parker - Last Filed: 09/10/23 17:27> ROS Other: All systems not noted in ROS Statement are negative. <Annabella Spangler - Last Filed: 09/10/23 22:45> ROS Statement: Those systems with pertinent positive or pertinent negative responses have been documented in the HPI. Past Medical History Past Medical History: No Reported History Additional Past Medical History / Comment(s): kidney stones, facet syndrome, back pain, sciatica, bipolar History of Any Multi-Drug Resistant Organisms: None Reported Past Surgical History: Hernia Repair, Tubal Ligation Additional Past Surgical History / Comment(s): lithotripsy, hx of kidney stones, (L) foot surgery Past Psychological History: Anxiety, Bipolar, Depression, Schizoaffective D isorder Smoking Status: Current every day smoker Past Alcohol Use History: None Reported Past Drug Use History: Marijuana <Jodie Parker - Last Filed: 09/10/23 17:27> General Exam Limitations: no limitations <Jodie Parker - Last Filed: 09/10/23 17:27> General appearance: alert, in no apparent distress Head exam: Present: atraumatic, normocephalic, normal inspection Eye exam: Present: normal appearance, PERRL, EOMI. Absent: scleral icterus, conjunctival injection, periorbital swelling ENT exam: Present: normal exam, mucous membranes moist Neck exam: Present: normal inspection. Absent: tenderness, meningismus, lymphadenopathy Respiratory exam: Present: normal lung sounds bilaterally. Absent: respiratory distress, wheezes, rales, rhonchi, stridor Cardiovascular Exam: Present: regular rate, normal rhythm, normal heart sounds. Absent: systolic murmur, diastolic murmur, rubs, gallop, clicks GI/Abdominal exam: Present: soft, normal bowel sounds. Absent: distended, tenderness, guarding, rebound, rigid Extremities exam: Present: normal inspection, full ROM, normal capillary refill. Absent: tenderness, pedal edema, joint swelling, calf tenderness Back exam: Present: normal inspection Neurological exam: Present: alert, oriented X3, CN II-XII intact Psychiatric exam: Present: normal affect, normal mood Skin exam: Present: warm, dry, intact, normal color. Absent: rash <Annabella Spangler - Last Filed: 09/10/23 22:45> - General Exam Comments Initial Comments: Visual Physical Exam Vital signs reviewed General: Well-appearing, nontoxic, no acute distress. Head: Normocephalic, atraumatic Eyes: PERRLA, EOMI ENT: Airway patent Chest: Nonlabored breathing Skin: No visual rash, normal skin tone Neuro: Alert and oriented 3 Musculoskeletal: No gross abnormalities I performed the QuickNote portion of this chart. Signed Jodie Parker PA-C. (Jodie Parker) Course Vital Signs 09/10/23 09/10/23 09/10/23 16:22 19:33 20:56 Temperature 98.4 F 98.2 F Pulse Rate 76 76 72 Respiratory 16 18 20 Rate Blood Pressure 131/92 128/93 134/97 O2 Sat by Pulse 97 98 97 Oximetry Medical Decision Making - Lab Data Result diagrams: 09/10/23 16:28 09/10/23 16:28 <Jodie Parker - Last Filed: 09/10/23 17:27> - Lab Data Result diagrams: 09/10/23 16:28 09/10/23 16:28 <Annabella Spangler - Last Filed: 09/10/23 22:45> - Medical Decision Making Was pt. sent in by a medical professional or institution (Dr., PA, ANODE MACHINE OPERATOR, urgent care, hospital, or senior care...) When possible be specific @ -Patient was sent in by urgent care Did you speak to anyone other than the patient for history (EMS, parent, family, police, friend...)? What history was obtained from this source @ -No Did you review nursing and triage notes (agree or disagree)? Why? @ -I reviewed and agree with nursing and triage notes Were old charts reviewed (outside hosp., previous admission, EMS record, old EKG, old radiological studies, urgent care reports/EKG's, senior care records)? Report findings @ -No old charts were reviewed Differential Diagnosis (chest pain, altered mental status, abdominal pain women, abdominal pain men, vaginal bleeding, weakness, fever, dyspnea, syncope, headache, dizziness, GI bleed, back pain, seizure, CVA, palpatations, mental health, musculoskeletal)? @ -Differential Dyspnea: Coronary syndrome, arrhythmia, tamponade, asthma, COPD, pulmonary embolism, pneumonia, pneumothorax, pulmonary effusion, anaphylaxis, diabetic ketoacidosis, flailed chest, pulmonary contusion, diaphragmatic rupture, anemia, neuromuscular, this is not meant to be an all-inclusive list. EKG interpreted by me (3pts min.). @ -Yes and demonstrates sinus rhythm with a rate of 72. GA interval 128. QRS 87. QTC of 405. No acute ST segment elevations or depressions X-rays interpreted by me (1pt min.). @ -yes and demonstrates no acute process CT interpreted by me (1pt min.). @ -Yes and demonstrates no acute process U/S interpreted by me (1pt. min.). @ -None done What testing was considered but not performed or refused? (CT, X-rays, U/S, labs)? Why? @ -None What meds were considered but not given or refused? Why? @ -None Did you discuss the management of the patient with other professionals (professionals i.e. , PA, ANODE MACHINE OPERATOR, lab, RT, psych nurse, social media marketing specialist, intellectual property lawyer, teacher, chief juvenile probation officer, ed case manager)? Give summary @ -No Was smoking cessation discussed for >3mins.? @ -No Was critical care preformed (if so, how long)? @ -No Were there social determinants of health that impacted care today? How? (Homelessness, low income, unemployed, alcoholism, drug addiction, transportation, low edu. Level, literacy, decrease access to med. care, fdc, rehab)? @ -No Was there de-escalation of care discussed even if they declined (Discuss DNR or withdrawal of care, Hospice)? DNR status @ -No What co-morbidities impacted this encounter? (DM, HTN, Smoking, COPD, CAD, Cancer, CVA, ARF, Chemo, Hep., AIDS, mental health diagnosis, sleep apnea, morbid obesity)? @ -None Was patient admitted / discharged? Hospital course, mention meds given and route, prescriptions, significant lab abnormalities, going to OR and other pertinent info. @ -Upon arrival patient was placed in room 2. Thorough history and physical exam was performed. Patient was given medication for pain control. Laboratory studies are reviewed. She continues to have significant pleuritic chest pain and therefore this is followed by a CT which does not demonstrate acute PE. Patient reevaluated and has reassurance. Feels comfortable with discharge home at this time. She is instructed to follow-up with her primary care doctor. Alternate taking Motrin with [place]. This will substitute for the patient's tramadol. She is provided with an incentive spirometer. She does have an inhaler at home. She is to return for any new or worsening symptoms. Patient agreeable discharged in stable condition Undiagnosed new problem with uncertain prognosis? @ -Yes Drug Therapy requiring intensive monitoring for toxicity (Heparin, Nitro, Insulin, Cardizem)? @ -No Were any procedures done? @ -No Diagnosis/symptom? @ -acute pleuritic chest pain, pleurisy Acute, or Chronic, or Acute on Chronic? @ -Acute Uncomplicated (without systemic symptoms) or Complicated (systemic symptoms)? @ -Complicated Side effects of treatment? @ -No Exacerbation, Progression, or Severe Exacerbation? @ -No Poses a threat to life or bodily function? How? (Chest pain, [place], GA, pneumonia, PE, COPD, DKA, ARF, appy, cholecystitis, CVA, Diverticulitis, Homicidal, Suicidal, threat to staff... and all critical care pts) @ -No (Annabella Spangler) - Lab Data Lab Results 09/10/23 09/10/23 09/10/23 Range/Units 16:28 16:28 16:28 WBC 11.6 H (3.8-10.6) k/uL RBC 5.04 (3.80-5.40) m/uL Hgb 14.3 (11.4-16.0) gm/dL Hct 42.2 (34.0-46.0) % MCV 83.7 (80.0-100.0) fL MCH 28.3 (25.0-35.0) pg MCHC 33.8 (31.0-37.0) g/dL RDW 14.1 (11.5-15.5) % Plt Count 287 (150-450) k/uL MPV 8.0 Neutrophils % 68 % Lymphocytes % 27 % Monocytes % 4 % Eosinophils % 1 % Basophils % 0 % Neutrophils # 7.9 H (1.3-7.7) k/uL Lymphocytes # 3.1 (1.0-4.8) k/uL Monocytes # 0.4 (0-1.0) k/uL Eosinophils # 0.1 (0-0.7) k/uL Basophils # 0.1 (0-0.2) k/uL PT 10.3 (10.0-12.5) sec INR 0.9 (<1.2) APTT 24.8 (22.0-30.0) sec D-Dimer <0.17 (<0.60) mg/L FEU Sodium 139 (137-145) mmol/L Potassium 4.4 (3.5-5.1) mmol/L Chloride 103 (98-107) mmol/L Carbon Dioxide 24 (22-30) mmol/L Anion Gap 12 mmol/L BUN 15 (7-17) mg/dL Creatinine 0.77 (0.52-1.04) mg/dL Est GFR (CKD-EPI)AfAm >90 (>60 ml/min/1.73 sqM) Est GFR (CKD-EPI)NonAf >90 (>60 ml/min/1.73 sqM) Glucose 106 H (74-99) mg/dL Calcium 9.9 (8.4-10.2) mg/dL Total Bilirubin 0.4 (0.2-1.3) mg/dL AST 16 (14-36) U/L ALT 11 (4-34) U/L Alkaline Phosphatase 102 (38-126) U/L Troponin I (0.000-0.034) ng/mL Total Protein 7.0 (6.3-8.2) g/dL Albumin 4.4 (3.5-5.0) g/dL 09/10/23 Range/Units 16:28 WBC (3.8-10.6) k/uL RBC (3.80-5.40) m/uL Hgb (11.4-16.0) gm/dL Hct (34.0-46.0) % MCV (80.0-100.0) fL MCH (25.0-35.0) pg MCHC (31.0-37.0) g/dL RDW (11.5-15.5) % Plt Count (150-450) k/uL MPV Neutrophils % % Lymphocytes % % Monocytes % % Eosinophils % % Basophils % % Neutrophils # (1.3-7.7) k/uL Lymphocytes # (1.0-4.8) k/uL Monocytes # (0-1.0) k/uL Eosinophils # (0-0.7) k/uL Basophils # (0-0.2) k/uL PT (10.0-12.5) sec INR (<1.2) APTT (22.0-30.0) sec D-Dimer (<0.60) mg/L FEU Sodium (137-145) mmol/L Potassium (3.5-5.1) mmol/L Chloride (98-107) mmol/L Carbon Dioxide (22-30) mmol/L Anion Gap mmol/L BUN (7-17) mg/dL Creatinine (0.52-1.04) mg/dL Est GFR (CKD-EPI)AfAm (>60 ml/min/1.73 sqM) Est GFR (CKD-EPI)NonAf (>60 ml/min/1.73 sqM) Glucose (74-99) mg/dL Calcium (8.4-10.2) mg/dL Total Bilirubin (0.2-1.3) mg/dL AST (14-36) U/L ALT (4-34) U/L Alkaline Phosphatase (38-126) U/L Troponin I <0.012 (0.000-0.034) ng/mL Total Protein (6.3-8.2) g/dL Albumin (3.5-5.0) g/dL Disposition <Jodie Parker - Last Filed: 09/10/23 17:27> Is patient prescribed a controlled substance at d/c from ED?: Yes When asked, does pt state using other controlled substances?: No If prescribed controlled substance>3 days was MAPS reviewed?: Prescribed <3 Days If opioid is for acute pain is fill amount 7 days or less?: Yes Time of Disposition: 20:41 <Annabella Spangler - Last Filed: 09/10/23 22:45> Clinical Impression: Pleurisy, Chest pain Disposition: HOME SELF-CARE Condition: Stable Instructions (If sedation given, give patient instructions): Pleurisy (ED) Additional Instructions: You can alternate using a [place] with Motrin as soon as you are cleared to use Motrin. Using incentive spirometer a few times per day. Substitute the [place] or the tramadol. Use your inhaler or nebulizer every 4 hours. Return if you have any new or worsening symptoms including fever Prescriptions: HYDROcodone/APAP 10-325MG [[place] 10-325] 1 tab PO Q4HR PRN 3 Days #18 tab PRN Reason: Pain Referrals: Mariann Damian DO [Primary Care Provider] - 1-2 days
[2023-09-10] MEDS ORDERED: HYDROmorphone 1 MG/ML 1 ML SYRINGE IVP STA (19:45)
--- NOTE | 2023-09-10 20:11 | CT ---
EXAMINATION TYPE: CT chest angio for PE CT DLP: 395.4 mGycm, Automated exposure control for dose reduction was used. DATE OF EXAM: 09/10/2023 8:02 PM COMPARISON: Chest radiograph from same day CLINICAL INDICATION:Female, 43 years old with history of chest pain, recent surgery. TECHNIQUE/CONTRAST: CTA scan of the thorax is performed with IV Contrast, patient injected with 100 ml mL of Isovue 370, MIP images are created and reviewed these are created on a separate workstation.. FINDINGS: Pulmonary Artery: There is no evidence for a filling defect within the pulmonary vasculature to sugge st acute pulmonary embolism. The pulmonary artery is of normal size. Lungs/Pleura: No evidence of focal consolidation, pleural effusion or pneumothorax. Airway: Large airways are patent. Heart: Heart is within normal limits for size. Vasculature: No evidence of aortic aneurysm. Mediastinum: No gross evidence of adenopathy. Musculoskeletal: Mild degenerative disc disease changes are present throughout the thoracolumbar spin e. Soft Tissues: Unremarkable. Lower neck: No significant findings. Upper Abdomen: No significant findings. IMPRESSION: No evidence of pulmonary embolism or acute process.
[2023-09-10 21:18] VITALS: BP 134/97; PULSE 72; RESP 20; TEMP 98.2
== END 2023-09-10 20:56 | disposition home or self-care (01) ==
LOC: EC 16:15
DX: R09.1 Pleurisy (principal); R07.89 Other chest pain; F17.200 Nicotine dependence, unspecified, uncomplicated; F12.90 Cannabis use, unspecified, uncomplicated; Z86.59 Personal history of other mental and behavioral disorders; Z88.5 Allergy status to narcotic agent; Z88.6 Allergy status to analgesic agent; Z91.012 Allergy to eggs; Z88.8 Allergy status to other drugs, medicaments and biological substances
CPT/HCPCS: 36415; 85379; 80053; 84484; 85025; 85610; 85730; 71046; 71275; 99285; 96374; J1170; Q9967